=== PATIENT | female | born 1955 | race Caucasian/White ===

== ENCOUNTER 2017-05-06 09:55 | Outpatient (CLI) | payer BC ==
[~2017-05-06 09:55] MED LIST: Iopamidol 370 76% 100 ML VIAL ONE
--- NOTE | 2017-05-06 14:09 | CT ---
CT CHEST AND ABDOMEN AND PELVIS PERFORMED WITH INTRAVENOUS CONTRAST ENHANCEMENT: HISTORY: Left breast cancer with metastatic bone disease. The patient has had chemo but no radiation. COMPARISON: Exam done at [facility], dated 04/23/2016. FINDINGS: CHEST: The lungs are clear of any infiltrative process, and no pulmonary nodules are identified. Th ere is no evidence of any pleural effusions. The thyroid gland is normal in size. There is no significant mediastinal or hilar lymphadenopathy. ABDOMEN: The liver, spleen, pancreas, and gallbladder regions appear unremarkable. The right and left adrenal glands and the right and left kidneys are normal in size. A small hypoden sity involving the right kidney is probably a small cyst or possibly a small angiomyolipoma. It is s table. There is no significant periaortic or mesenteric lymphadenopathy seen. PELVIS: No evidence of adenopathy, mass, or free fluid. Review of osseous structures shows diffuse blastic bony changes, mainly involving the spine and pelvi s. There has been conversion of some of the more lytic appearing change to more blastic change, whic h is probably on the basis of treatment. Areas are much more numerous than noted on the previous exa m. There is no evidence of any pathologic fractures. IMPRESSION: 1. The left breast mass is much smaller in size as compared to the prior exam. 2. Diffuse blastic bony metastatic disease. On the previous exam, there are several predominantly ly tic lesions demonstrated. Some of these appear to have converted to a more blastic change, probably on the basis of treatment. The number of these bone lesions has significantly increased, as compared to the prior exam. POS: [facility]
--- NOTE | 2017-05-06 15:42 | NM ---
WHOLE BODY BONE SCAN: Date: 05/06/17 HISTORY: Malignant neoplasm of upper outer quadrant of left female breast, secondary malignant neoplasm of bon e. RADIOPHARMACEUTICAL: 32 mCi technetium-99m MDP injected intravenously. COMPARISON: 09/14/16. FINDINGS: Multiple foci of abnormally increased uptake in the spine, ribs, sternum, and pelvis are again seen w ith interval development of new lesions in the spine, ribs, and pelvis. Increased uptake in the shoulders, elbows, wrists, knees, and feet are consistent with degenerative c hange. Tracer excretion through the kidneys is within normal limits. IMPRESSION: Interval worsening osseous metastatic disease since 09/14/16. POS: [facility]
== END 2017-05-06 09:56 | disposition home or self-care (01) ==
LOC: NM 09:55
PROVIDERS: ATTEND Internal Medicine Hematology & Oncology
DX: C50.412 Malignant neoplasm of upper-outer quadrant of left female breast (principal); C79.51 Secondary malignant neoplasm of bone
CPT/HCPCS: 71260; 74177; 78306; 82565; A9503

== ENCOUNTER 2017-08-10 10:26 | Emergency (ER) | payer BC ==
[2017-08-10 11:18] LABS: Bilirubin Negative (Negative); Blood, Urine Negative (Negative); Clarity CLEAR (Clear); Glucose, Urine (Dipstick) Negative (Negative); Leukocyte Negative (Negative); Nitrite Negative (Negative); Protein, Urine (Dipstick) Negative (Neg-Trace); Specific Gravity, Urine 1.007 (1.002-1.036)
[2017-08-10] MEDS ORDERED: Morphine 4 MG/ML VIAL ONE (11:34)
--- NOTE | 2017-08-10 13:32 | CT ---
CT THORACIC SPINE WITH CORONAL AND SAGITTAL REFORMATIONS CT LUMBAR SPINE WITH CORONAL AND SAGITTAL REFORMATIONS: Date: 08/10/17 HISTORY: Low back pain radiating down both legs. No incontinence of bladder or bowel. No numbness or tingling of lower legs. No weakness of lower legs. Patient is on oral chemo meds for breast cancer. FINDINGS: Correlation is made with the bone scan and CT chest, abdomen, and pelvis dated 05/06/17. Numerous sclerotic lesions are seen throughout the lumbosacral spine and visualized portions of the p michelle bones and the ribs consistent with metastatic disease. There are a few mixed lesions. A lytic l esion is noted at T8 level with erosion of the posterior cortex and mild soft tissue encroachment int o the spinal canal. This finding is worse compared to the exam of 05/06/17. There is mild wedging of the superior end plates of T3 and T5 vertebral bodies. A small angiomyolipoma is noted in the right k idney. Small bilateral pleural effusions are present. IMPRESSION: Extensive osseous metastatic disease with posterior cortical destruction and mild soft tissue extensi on into the spinal canal at T8 level. If there is concern for cord compression, MRI should be perform ed. POS: [facility]
== END 2017-08-10 13:44 | disposition home or self-care (01) ==
LOC: ERS 10:26
DX: M54.5 Low back pain (principal); C50.919 Malignant neoplasm of unspecified site of unspecified female breast; Z79.899 Other long term (current) drug therapy
CPT/HCPCS: 72128; 72131; 81003; 87086; 96372; J2270

== ENCOUNTER 2017-08-16 09:13 | Outpatient (CLI) | payer BC ==
--- NOTE | 2017-08-16 12:03 | MRI ---
THORACIC SPINE MRI WITH AND WITHOUT CONTRAST: COMPARISON: 04/13/16. HISTORY: Osseous metastases, secondary malignant neoplasm of bone. TECHNIQUE: Thoracic spine MRI is performed with and without intravenous Gadolinium administration. Multisequent ial, multiplanar imaging is performed. FINDINGS: There is multilevel abnormal T1 marrow signal hypointensity throughout the thoracic spine, compatible with multifocal osseous metastasis. There is patchy STIR hyperintensity associated with the areas o f abnormal signal intensity, further supporting the diagnosis of osseous metastasis. On the postcont rast images, there is heterogeneous enhancement throughout the thoracic spine as well as multiple tho racic ribs. There is no significant loss of vertebral body height. No evidence of a pathologic frac ture with significant loss of vertebral body height. Appropriate signal intensity of the mediastinal structures. Dependent atelectatic changes are noted. There are small left greater than right pleural effusions. The thoracic cord has an overall normal size and signal intensity. No evidence of cord expansion. N o abnormal enhancement of the thoracic cord.. Conus medullaris terminates beyond th eT12 level. Ref er to the lumbar spine report for further details. There are T2 hyperintensities in the liver, incompletely evaluated. Symmetric signal intensity of th e psoas muscles. No obvious enhancement of the spinal cord. On the postcontrast images, there is multifocal osseous enhancement compatible with metastases. At t he T8 level, there is enhancement involving the left aspect of the vertebral body with extension to t he left pedicle. There is evidence of bony replacement/expansion. Abnormal enhancement does encroac h upon the anterior left aspect of the central spinal canal. There is some deformity of the thoracic cord, without T2 hyperintensity in the cord. Overall, there is mild to moderate central canal steno sis, due to bony expansion secondary to metastases. Correlation made with CT does not demonstrate an y pathologic fracture. Additionally, there is evidence of osseous metastases in the cervical spine, incompletely evaluated. IMPRESSION: 1. Extensive osseous metastases. 2. MR evidence of osseous metastases involving the left aspect of the T8 vertebral body with extensi on into the left pedicle. There is bony remodeling and expansion which causes mild to moderate centr al canal stenosis at T8. There is mild deformity of the thoracic cord at this level, without T2 hype rintensity of the cord. No pathologic enhancement is appreciated. POS: [facility]
--- NOTE | 2017-08-16 12:43 | MRI ---
MRI LUMBAR SPINE WITH AND WITHOUT CONTRAST: COMPARISON: 12/19/12. HISTORY: Secondary neoplasm of the bone. The patient has metastatic breast cancer. The patient has an abnorm ality at T8. Evaluate for additional areas of metastases/malignancy. TECHNIQUE: Lumbar spine MRI is performed without intravenous and with intravenous Gadolinium administration. Mu ltisequential, multiplanar imaging is performed. FINDINGS: Heterogeneous T1 marrow signal intensity of the lumbar vertebrae. Vertebral body height is maintaine d. There is no evidence of pathologic fracture. There is corresponding STIR hyperintensity in the r egions of osseous metastases along with associated enhancement. Metastases in the sacrum are also no tayler. There is significant signal intensity to the psoas muscles and kidneys. Conus medullaris terminates at the upper aspect of L1. There is no abnormal enhancement with regards to the cauda equina and conus medullaris. There is no abnormal enhancement within the thecal sac. Metastasis involving the right iliac bone is also noted. T12-L1: Adequate disk hydration. No significant central canal stenosis or foraminal narrowing. L1-L2: Adequate disk hydration. Generalized disk bulge without significant central canal stenosis. Foramen are patent. L2-L3: Desiccation with mild loss of disk space height. No significant posterior disk abnormality. No significant central canal stenosis. Foramen are patent. L3-L4: Adequate disk hydration. NO significant posterior disk abnormality. No significant central canal stenosis. Mild narrowing of the left subarticular zone due to disk material and posttraumatic hypertrophy. Minimal obscuration of the traversing left L4 nerve root. Right neural foramen is estevez nt. Mild left foraminal narrowing. L4-L5: Adequate disk hydration. There is a generalized disk bulge with minimal encroachment upon ranjit th subarticular zones. There is minimal mass effect without obscuration of either traversing L5 nerv e root. Posterior element hypertrophy is noted. No significant central canal stenosis. Mild bilate ral foraminal narrowing. L5-S1: Minimal desiccation without significant loss of disk space height. No significant central ca nal stenosis. Neural foramina are patent. IMPRESSION: 1. Multifocal osseous metastases. 2. No evidence of abnormal enhancement within the thecal sac. 3. Degenerative change of the lumbar spine as above. No high-grade central canal stenosis or high-g rade foraminal narrowing. POS: [facility]
[2017-08-16] MEDS ORDERED: Gadobenate Dimeglumine 529 MG/1 ML (20ML VIAL) ONE (16:36)
== END 2017-08-16 09:14 | disposition home or self-care (01) ==
LOC: MRI 09:13
PROVIDERS: ATTEND Internal Medicine Hematology & Oncology
DX: C79.51 Secondary malignant neoplasm of bone (principal); C50.412 Malignant neoplasm of upper-outer quadrant of left female breast; M47.896 Other spondylosis, lumbar region; M51.26 Other intervertebral disc displacement, lumbar region; M99.83 Other biomechanical lesions of lumbar region; M48.04 Spinal stenosis, thoracic region
CPT/HCPCS: 72157; 72158; A9579

== ENCOUNTER 2017-10-22 15:56 | Day surgery (SDC) | payer BC ==
[2017-10-22] MEDS ORDERED: diphenhydrAMINE 25 MG CAP PO SCH (16:45)
[2017-10-22] MEDS ORDERED: Acetaminophen 500 MG TAB PO SCH (16:45)
[2017-10-22] MEDS ORDERED: Prevnar 13-Val Conj/PF 0.5 ML SYRINGE IM ONE (18:00)
[2017-10-22 20:41] VITALS: BP 109/69; TEMP 98
[2017-10-22 21:13] LABS: Band 5 % (5-11); Eosinophils 3 % (0-10); Hemoglobin 9.9 g/dL (12.0-16.0); Lymphocytes 24 % (21-51); MDiff Complete? YES; Mean Corpuscular HGB CONC 32.7 g/dL (32.0-36.0); Mean Corpuscular Hemoglobin 30.6 pg (27.0-31.0); Mean Corpuscular Volume 93.6 fL (78.0-98.0); Mean Platelet Volume 6.6 fL (7.4-10.4); Monocytes 24 % (0-10); Neutrophil 44 % (42-75); Nucleated RBC 1 % (0); PLT Morphology Comment Appears Adequate; Platelet Count 156 thou/uL (130-400); RBC Distribution Width 15.5 % (11.5-14.5); Red Blood Cell (RBC) Count 3.22 mill/uL (4.20-5.40); White Blood Cell (WBC) Count 2.1 thou/uL (4.8-10.8)
== END 2017-10-22 20:49 | disposition home or self-care (01) ==
LOC: ONC/OP 15:56
PROVIDERS: ATTEND Internal Medicine Hematology & Oncology
DX: D64.9 Anemia, unspecified (principal); D69.6 Thrombocytopenia, unspecified
CPT/HCPCS: 36415; 36430; 85025; 86850; 86900; 86901; P9016

== ENCOUNTER 2018-03-05 08:40 | Outpatient (CLI) | payer BC ==
--- NOTE | 2018-03-05 10:54 | CT ---
CHEST AND ABDOMEN CT SCAN WITH IV CONTRAST: Date: 03/05/18 HISTORY: 62-year-old female with history of breast cancer with bone metastasis. COMPARISON: 05/06/17. FINDINGS: There are extensive bone metastases, which have considerably progressed when compared to the prior st udy. There is development of a moderate size pericardial effusion up to 2.0 cm in thickness posterior ly. Very small right pleural effusion. Small focus of subpleural parenchymal density in the medial as pect of the superior right lower lobe, new from the prior study, nonspecific, possibly a small focus of subsegmental atelectasis or pneumonia or pneumonitis. There are numerous liver metastases which have developed since the prior study, up to 1.5 cm in size. The gallbladder, pancreas, spleen, and adrenal glands are unremarkable. Small bilateral stable renal cysts. Extensive bone metastases noted throughout the lumbar spine, sacrum, and pelvis. There is a v ertically oriented pathologic fracture through the right superior sacral ala, which is new when elaine red to the prior study. This is not completely imaged since the pelvis is not included on this study. No evidence for significant adenopathy. No abscess or abnormal fluid collection within the abdomen. IMPRESSION: 1. Extensive worsening bone metastases. 2. Interval development of multiple liver metastases, up to 1.5 cm. 3. Developing pericardial effusion. 4. Developing very small right pleural effusion. Developing small subpleural area of parenchymal ashley nge in the right lower lobe, superior segment medially, nonspecific, possibly a small focus of pneumo nitis or subsegmental atelectasis. 5. Developing pathologic fracture, incompletely seen, involving the superior right sacral ala. POS: [facility]
--- NOTE | 2018-03-05 14:47 | NM ---
WHOLE BODY BONE SCAN: Date: 03/05/18 HISTORY: Secondary malignant neoplasm of bone. History of breast cancer. RADIOPHARMACEUTICAL: 32.9 mCi technetium-99m labeled MDP, IV. VIEWS OBTAINED: Anterior and posterior whole body. COMPARISON: 05/06/17. FINDINGS: There are scattered areas of increased uptake of radiotracer seen within the ribs bilaterally, which have increased from the prior study, with areas of eccentric increased uptake seen within thoracic ve rtebral bodies. The more intense areas of uptake of radiotracer within the thoracic spine have improv ed from the prior exam, although there are a greater number of focal areas of uptake of radiotracer s een within the ribs bilaterally. There are faint areas of increased uptake seen within the sternum bi laterally. There is also an eccentric area of increased uptake seen within the right aspect of the sa prabhu. Recent CT examination on 03/05/18 demonstrates partial visualization of a fracture with increas ed density, and findings may be related to pathological fracture in the region of a metastatic lesion . There is also mild increased activity seen in the medial aspect of each iliac bone adjacent to the sacroiliac joint, as well as involving the sacrum. There is increased uptake of activity in the shoulders bilaterally. There is a sclerotic lesion seen in the region of each glenoid on CT exam and findings may be related to a combination of mild degener ative changes, as well as metastatic lesions. IMPRESSION: 1. Multifocal metastatic lesions seen, predominantly involving the bilateral ribs, as well as the sp ine, and involving the pelvis. 2. Intense uptake of radiotracer within the right sacrum, and a fracture was seen on recent CT exam, incompletely imaged on that study, with associated area of increased density on CT suggesting metast atic lesion in this region, and findings may be related to pathological fracture involving the right sacrum. POS: [facility]
== END 2018-03-05 08:41 | disposition home or self-care (01) ==
LOC: CT 08:40
PROVIDERS: ATTEND Internal Medicine Hematology & Oncology
DX: C50.919 Malignant neoplasm of unspecified site of unspecified female breast (principal); C79.51 Secondary malignant neoplasm of bone; C78.7 Secondary malignant neoplasm of liver and intrahepatic bile duct; I31.3 Pericardial effusion (noninflammatory); J90 Pleural effusion, not elsewhere classified; M84.48XA Pathological fracture, other site, initial encounter for fracture
CPT/HCPCS: 71260; 74160; 78306; A9503

== ENCOUNTER 2018-03-20 06:12 | Day surgery (SDC) | payer BC ==
[2018-03-19 08:51] VITALS: BMI 26.7
[2018-03-20] MEDS ORDERED: CEFAZOLIN 2 GM/50 ML BAG ONE (06:39)
[2018-03-20] MEDS ORDERED: Fentanyl 100 MCG/2 ML VIAL ONE (06:55)
[2018-03-20 07:07] LABS: Hemoglobin 9.3 g/dL (12.0-16.0); Mean Corpuscular HGB CONC 31.9 g/dL (32.0-36.0); Mean Corpuscular Volume 93.8 fL (78.0-98.0); Mean Platelet Volume 4.1 fL (7.4-10.4); Platelet Count 222 thou/uL (130-400); RBC Distribution Width 14.9 % (11.5-14.5); Red Blood Cell (RBC) Count 3.12 mill/uL (4.20-5.40); White Blood Cell (WBC) Count 3.2 thou/uL (4.8-10.8)
[2018-03-20] MEDS ORDERED: Lidocaine 2% PF 5 ML VIAL ONE (07:19)
[2018-03-20] MEDS ORDERED: Bupivacaine/Epinephrine 0.25% 30 ML VIAL ONE (07:19)
[2018-03-20 07:28] LABS: Anion Gap 13 mmol/L (10-20); BUN (Urea Nitrogen) 11 mg/dL (9.8-20.1); Calc. Creatinine Clearance 105 mL/min (70-130); Calcium 9.2 mg/dL (7.8-10.44); Carbon Dioxide 24 mmol/L (23-31); Chloride 105 mmol/L (98-107); Estimated GFR-MDRD 83; Glucose 94 mg/dL (80-115); Sodium 138 mmol/L (136-145)
[2018-03-20 07:30] LABS: Band 6 % (5-11); Eosinophils 3 % (0-10); Hypochromia SLIGHT = 6-15 cells (100X) (0-5/hpf); Lymphocytes 19 % (21-51); MDiff Complete? YES; Monocytes 19 % (0-10); Neutrophil 51 % (42-75); Platelet Morphology Comment Appears Adequate; Polychromasia SLIGHT = 2-3 cells (100X) (0-2/hpf); Reactive Lymphocytes 1 % (0-10)
--- NOTE | 2018-03-20 11:21 | RAD ---
CHEST 1 VIEW: Date: 03/20/18 HISTORY: Status post MediPort placement. COMPARISON: Prior CT heel sander rubber film dated 03/05/18. FINDINGS: Right subclavian catheter and injection port in place. Heterogeneous sclerotic changes noted in the b chico structures, concerning for bone sclerotic metastasis. No pneumothorax or pleural effusion. IMPRESSION: Right central line and injection port. Evidence for bone sclerotic metastasis. No significant acute i ntrathoracic disease. No pneumothorax or pleural effusion. POS: [facility]
[2018-03-20] MEDS ORDERED: Ondansetron PF 4 MG/2 ML Vial ONE (14:49)
[2018-03-20] MEDS ORDERED: Lidocaine 1% PF 5 ML VIAL ONE (14:49)
[2018-03-20] MEDS ORDERED: ePHEDrine/0.9% NaCl/PF SYRINGE 50 mg/10 ml ONE (14:49)
[2018-03-20] MEDS ORDERED: PROPOFOL 200 MG/20 ML VIAL ONE (14:49)
[2018-03-20] MEDS ORDERED: Metoprolol Tartrate 5 MG/5 ML VIAL ONE (14:49)
--- NOTE | 2018-03-21 15:54 | PDOC.OP ---
Operative Note - Operative Note Operative Note: PROCEDURE: Right subclavian MediPort placement with fluoroscopic guidance SURGEON: Ajay Albert M.D. DATE OF PROCEDURE: 03/20/2018 PREOPERATIVE DIAGNOSIS: Metastatic breast cancer. POSTOPERATIVE DIAGNOSIS: Metastatic breast cancer. HISTORY: Patient is diagnosed with metastatic breast cancer which is progressing. Chemotherapy has been recommended and the oncologist has requested MediPort placement for this. OPERATIVE PROCEDURE IN DETAIL: After informed consent was obtained and appropriate preoperative antibiotics were administered, the patient was taken to the operating room and placed in supine position and monitored anesthesia care was administered. The patient was then placed in Trendelenburg position and the right internal jugular vein accessed easily under direct ultrasound guidance. There was excellent flow. The wire would not thread beyond the level of the clavicle. The wire was confirmed to be within the patent compressible vein, but the vein appeared to become narrow near the level of the clavicle and it was felt that the patient had a stenosis making this vein unusable. The right subclavian vein was then accessed easily by the standard approach on the first attempt with excellent flow of dark venous non-pulsatile blood. A wire threaded easily but would not advance into the superior vena cava despite multiple attempts, instead passing transversely into the proximal subclavian vein on the left. The left internal jugular was examined with ultrasound but this was very small, only half the size of the carotid artery in diameter and was felt to be inadequate for port placement. Therefore the left subclavian vein was accessed with excellent flow of dark venous nonpulsatile blood, but the wire would not thread despite multiple attempts. The right subclavian vein was again accessed and this time the wire was able to be advanced into the superior vena cava as confirmed by fluoroscopy. Additional local anesthesia was infused to the skin and subcutaneous tissues lateral and inferior to the access site. The skin incision was extended from the wire laterally and a subcutaneous pocket developed inferiorly. A Mediport was obtained and confirmed to fit in the subcutaneous pocket. This was secured inferiorly to the pectoralis fascia with a Prolene suture, which was clamped, but not tied. The dilator and sheath were then placed over the wire and the dilator and wire removed leaving the sheath in place. The clamped MediPort tubing was tunneled through the sheath, which was then split and removed leaving the MediPort tubing in place. The tubing was adjusted until the tip was confirmed by fluoroscopy to be in the superior vena cava just above the atrium. The tubing was clamped at the skin level and cut and the tubing secured to the port, which was then placed in the subcutaneous pocket. The previously placed suture was secured and two additional sutures were placed to fix the port in place within the pocket. The port was aspirated with the Cardona needle and had excellent flow of dark venous non-pulsatile blood and easily flushed without resistance. The subcutaneous tissues were closed with a running Monocryl suture , following which the skin was closed with a running subcuticular Monocryl suture. Dermabond dressings were placed and the hub was again accessed through the skin and confirmed to easily aspirate and easily flush. The course of the catheter was confirmed by fluoroscopy to be smooth with the tip appropriately located in the superior vena cava. The patient was taken back to the day stay unit in good condition. Estimated blood loss was minimal. There were no complications. There were no specimens.
== END 2018-03-20 10:55 | disposition home or self-care (01) ==
LOC: SDC 06:12
PROVIDERS: ATTEND Surgery
PROC: 0JH63WZ Insertion of Totally Implantable Vascular Access Device into Chest Subcutaneous Tissue and Fascia, Percutaneous Approach (ICD-10-PCS; principal; 2018-03-20)
DX: C50.912 Malignant neoplasm of unspecified site of left female breast (principal); C79.51 Secondary malignant neoplasm of bone; C78.7 Secondary malignant neoplasm of liver and intrahepatic bile duct; Z88.1 Allergy status to other antibiotic agents; Z88.8 Allergy status to other drugs, medicaments and biological substances
CPT/HCPCS: 36415; 71045; 80048; 85025; C1788; J1642; J2001; J2405; J2704; J3010

== ENCOUNTER 2018-05-08 07:27 | Day surgery (SDC) | payer BC ==
[2018-05-08] MEDS ORDERED: diphenhydrAMINE 25 MG CAP PO SCH (08:45)
[2018-05-08] MEDS ORDERED: Acetaminophen 500 MG TAB PO SCH (08:45)
[2018-05-08] MEDS ORDERED: Sodium Chloride 0.9% 30 ML ONE (09:59)
[2018-05-08 12:03] LABS: Hemoglobin 9.1 g/dL (12.0-16.0)
[2018-05-08 12:11] VITALS: BP 105/56; TEMP 97.6
== END 2018-05-08 12:11 | disposition home or self-care (01) ==
LOC: ONC/OP 07:27
PROVIDERS: ATTEND Internal Medicine Hematology & Oncology
PROC: 30233N1 Transfusion of Nonautologous Red Blood Cells into Peripheral Vein, Percutaneous Approach (ICD-10-PCS; principal; 2018-05-08)
DX: D64.9 Anemia, unspecified (principal); D69.6 Thrombocytopenia, unspecified; Z88.1 Allergy status to other antibiotic agents
CPT/HCPCS: 36430; 85014; 85018; 86850; 86900; 86901; J1642; P9016; Q0163

== ENCOUNTER 2018-06-05 08:13 | Day surgery (SDC) | payer BC ==
[~2018-06-05 08:13] MED LIST changes: +Acetaminophen 500 MG TAB PO SCH; -Iopamidol 370 76% 100 ML VIAL ONE; +diphenhydrAMINE 25 MG CAP PO SCH
[2018-06-05] MEDS ORDERED: Sodium Chloride 0.9% 40 ML ONE (08:42)
[2018-06-05 11:40] LABS: Hemoglobin 8.7 g/dL (12.0-16.0)
[2018-06-05 14:38] VITALS: BP 104/57; TEMP 98.6
== END 2018-06-05 14:42 | disposition home or self-care (01) ==
LOC: ONC/OP 08:13
PROVIDERS: ATTEND Internal Medicine Hematology & Oncology
PROC: 30233N1 Transfusion of Nonautologous Red Blood Cells into Peripheral Vein, Percutaneous Approach (ICD-10-PCS; principal; 2018-06-05)
DX: D64.9 Anemia, unspecified (principal); D69.6 Thrombocytopenia, unspecified; Z88.1 Allergy status to other antibiotic agents
CPT/HCPCS: 36430; 85014; 85018; 86850; 86900; 86901; J1642; P9016; Q0163

== ENCOUNTER 2018-06-16 09:18 | Outpatient (CLI) | payer BC ==
--- NOTE | 2018-06-16 11:23 | CT ---
CT OF THE CHEST AND ABDOMEN AND PELVIS: DATE: 06/16/2018. COMPARISON: 03/05/2018 CT examination of chest and abdomen. HISTORY: Breast cancer with osseous metastatic disease. TECHNIQUE: Axial CT imaging is obtained at 5 mm intervals from the thoracic inlet through the pubic symphysis wi th IV and oral contrast. Coronal reformatted imaging obtained. FINDINGS: CT CHEST: There is no axillary lymphadenopathy noted on either side. There is trace fluid in the superior pericardial recess. A small pericardial effusion is noted posteriorly measuring up to 1.6 cm in transverse dimension, sli ghtly less conspicuous than on the 03/05/2018 exam. No mediastinal or hilar lymphadenopathy is noted . The vascular structures of the chest appear patent. There is no pneumothorax seen on either side. There is mild increased linear interstitial density within the medial aspect of the right lower lobe on axial image 35, stable. No discrete/dominant pulmonary parenchymal mass lesion or nodule is noted on either side. Review of the osseous structures of the chest demonstrates sclerotic lesions within the manubrium and the sternum, which do not appear significantly changed, evidence of metastatic disease. Stable osse ous metastatic lesion within the inferior aspect of the right scapula. Numerous osseous lesions are noted within the ribs bilaterally, and there are innumerable sclerotic lesions seen scattered through out the thoracic vertebral bodies, not significantly changed, evidence of widespread osseous metastat ic disease. CT OF ABDOMEN AND PELVIS: No free intraperitoneal air or fluid is evident. There are numerous low-density lesions scattered throughout the right and the left lobe of the liver. The largest lesion within the left lobe of the liver measures approximately 1.3 cm in short axis di mension, similar when compared to the 03/05/2018 exam. These findings are consistent with stable met astatic disease within the left lobe of the liver. Similarly, there are numerous lesions scattered t hroughout the right lobe of the liver, not significantly changed in size or number when compared to t he most recent prior examination. The gallbladder, spleen, pancreas, adrenal glands, and kidneys demonstrate no acute findings. There is trace fluid within the pelvic cul-de-sac on the right. Evaluation of the large and small bowel demonstrates no evidence for bowel inflammatory change or obs truction. The vascular structures of the abdomen/pelvis appear patent. No retroperitoneal, pelvic, or mesenter ic lymphadenopathy. Osseous structures of the abdomen/pelvis demonstrate numerous sclerotic lesions within the ischium bi laterally as well as the region of the pubic symphysis, bilateral inferior pubic rami, and superior p ubic ramus on the right. There is a fracture involving the sacral ala on the right, as seen on the examination. This fracture is comminuted and involves the superior margin of the right sa cral ala through the inferior anterior aspect of the right sacral ala. There is extensive multilevel osseous metastatic disease involving the lumbar spine, with sclerotic lesion seen within all lumbar vertebral bodies, not significantly changed when compared to the most recent prior examination. IMPRESSION: Findings suggesting stable widespread osseous metastatic disease and stable diffuse hepatic metastati c disease involving right and left lobes of the liver. Small pericardial effusion noted, decreased s lightly when compared to prior imaging. Fracture of the right sacral alae. POS: [facility]
[2018-06-16] MEDS ORDERED: ISOVUE-370 76%-LOCM 1 ML ONE (14:44)
== END 2018-06-16 09:19 | disposition home or self-care (01) ==
LOC: BICCT 09:18
PROVIDERS: ATTEND Internal Medicine Hematology & Oncology
DX: C50.412 Malignant neoplasm of upper-outer quadrant of left female breast (principal); C79.51 Secondary malignant neoplasm of bone; I31.3 Pericardial effusion (noninflammatory); M84.58XA Pathological fracture in neoplastic disease, other specified site, initial encounter for fracture
CPT/HCPCS: 71260; 74177; 82565

== ENCOUNTER 2018-06-30 12:47 | Day surgery (SDC) | payer BC ==
[2018-06-30] MEDS ORDERED: diphenhydrAMINE 25 MG CAP PO SCH (13:30)
[2018-06-30] MEDS ORDERED: Acetaminophen 500 MG TAB PO SCH (13:30)
[2018-06-30 22:04] VITALS: BP 89/60; TEMP 97.5
[2018-06-30 22:07] LABS: Mean Corpuscular HGB CONC 32.5 g/dL (32.0-36.0); Mean Corpuscular Hemoglobin 31.2 pg (27.0-31.0); Mean Corpuscular Volume 95.9 fL (78.0-98.0); Mean Platelet Volume 12.4 fL (7.4-10.4); Platelet Count 13 thou/uL (130-400); Red Blood Cell (RBC) Count 2.89 mill/uL (4.20-5.40); White Blood Cell (WBC) Count 3.1 thou/uL (4.8-10.8)
[2018-06-30 22:28] LABS: Reflex for Review?? YES
[2018-06-30 22:29] LABS: Band 12 % (5-11); Hypochromia SLIGHT = 6-15 cells (100X) (0-5/hpf); Lymphocytes 12 % (21-51); MDiff Complete? YES; Monocytes 36 % (0-10); Neutrophil 40 % (42-75); Platelet Morphology Comment Appears Decreased
== END 2018-06-30 22:15 | disposition home or self-care (01) ==
LOC: ONC/OP 12:47 → SURG A 12:49 → ONC/OP 22:15
PROVIDERS: ATTEND Internal Medicine Hematology & Oncology
PROC: 30233N1 Transfusion of Nonautologous Red Blood Cells into Peripheral Vein, Percutaneous Approach (ICD-10-PCS; principal; 2018-06-30)
DX: D64.9 Anemia, unspecified (principal); D69.6 Thrombocytopenia, unspecified
CPT/HCPCS: 36430; 80053; 82248; 83615; 84100; 84550; 85025; 85060; 86850; 86900; 86901; P9016; Q0163

== ENCOUNTER 2018-07-16 14:19 | Outpatient (CLI) | payer BC | END 2018-07-16 14:20 | disposition home or self-care (01) | LOC: ULT 14:19 | PROVIDERS: ATTEND Internal Medicine Hematology & Oncology | DX: C50.412 Malignant neoplasm of upper-outer quadrant of left female breast (principal); I08.2 Rheumatic disorders of both aortic and tricuspid valves; I31.3 Pericardial effusion (noninflammatory); Z79.899 Other long term (current) drug therapy | CPT/HCPCS: 93306 ==

== ENCOUNTER 2018-07-25 08:25 | Day surgery (SDC) | payer BC ==
[2018-07-25] MEDS ORDERED: Sodium Chloride 0.9% 20 ML ONE (09:51)
[2018-07-25] MEDS ORDERED: Acetaminophen 500 MG TAB PO SCH (10:30)
[2018-07-25] MEDS ORDERED: diphenhydrAMINE 25 MG CAP PO SCH (10:30)
[2018-07-25 15:18] VITALS: BP 93/52; TEMP 97.9
== END 2018-07-25 15:18 | disposition home or self-care (01) ==
LOC: ONC/OP 08:25
PROVIDERS: ATTEND Internal Medicine Hematology & Oncology
PROC: 30233N1 Transfusion of Nonautologous Red Blood Cells into Peripheral Vein, Percutaneous Approach (ICD-10-PCS; principal; 2018-07-25)
DX: D64.9 Anemia, unspecified (principal); D69.6 Thrombocytopenia, unspecified
CPT/HCPCS: 36430; 85014; 85018; 86850; 86900; 86901; J1642; P9016; Q0163

== ENCOUNTER 2018-07-28 09:19 | Outpatient (CLI) | payer BC ==
--- NOTE | 2018-07-28 10:38 | CT ---
EXAM: CT chest, abdomen, and pelvis with IV contrast: HISTORY: Breast cancer with metastatic liver and osseous lesions. Patient currently on chemotherapy. COMPARISON: 06/16/2018 FINDINGS: CT THORAX: Lungs: Scattered linear densities are seen in the lungs bilaterally which may be related to atelectas is or minimal scarring. No discrete pulmonary nodule or mass is seen. Interstitial densities medial right lower lobe are less conspicuous on today's exam. Pleura: A tiny right pleural effusion is present. Lymph nodes: No lymphadenopathy. Mediastinum: A stable small pericardial effusion is seen. No mediastinal or hilar lymphadenopathy is seen. Chest wall: No abnormalities Vessels: A right subclavian Mediport catheter is again noted in place. The thoracic aorta is normal i n caliber. CT ABDOMEN AND PELVIS: Liver: Multiple scattered hypodense lesions are seen throughout each lobe of the liver which are over all stable in size as well as number. However, there is a hypodense lesion in the lateral aspect lateral segment left hepatic lobe measuring 1.9 cm which previously measured 1.3 cm. Gallbladder: Decompressed but otherwise grossly normal in appearance.\ Pancreas: Within normal limits. Spleen: Within normal limits. Adrenal glands: Within normal limits. Kidneys: Within normal limits. Urinary Bladder: The urinary bladder is unremarkable. Reproductive organs: Within normal limits for patient's age. Bowel: Normal in caliber. Adenopathy:No lymphadenopathy within the abdomen or pelvis. Peritoneum: A small amount of free fluid is seen in the pelvis slightly increased when compared to pr ior exam. Abdominal wall: No abnormalities seen. Osseous structures: Diffuse sclerotic osseous metastatic lesions are seen throughout the spine, benitez um, and in the pelvis as well as involving the sacrum and scattered within ribs. Probable small sclerotic lesions in the distal body of each scapula. Pathological fracture involving the right sacra l ala is again seen. IMPRESSION: 1. Persistent widespread osseous metastatic disease with overall stable hepatic metastatic disease; a lthough, there has been mild interval enlargement of a hypodense lesion lateral segment left hepatic lobe. 2. Persistent fracture right sacral ala. 3. Stable small pericardial effusion with tiny right pleural effusion. 4. No discrete pulmonary nodule is visualized.
[2018-07-28] MEDS ORDERED: ISOVUE-370 76%-LOCM 1 ML ONE (10:56)
== END 2018-07-28 09:20 | disposition home or self-care (01) ==
LOC: RAD 09:19
PROVIDERS: ATTEND Internal Medicine Hematology & Oncology
DX: C79.51 Secondary malignant neoplasm of bone (principal); C78.7 Secondary malignant neoplasm of liver and intrahepatic bile duct; C50.919 Malignant neoplasm of unspecified site of unspecified female breast; K76.89 Other specified diseases of liver; J90 Pleural effusion, not elsewhere classified; I31.3 Pericardial effusion (noninflammatory); S32.10XA Unspecified fracture of sacrum, initial encounter for closed fracture
CPT/HCPCS: 71260; 74177; Q9966

== ENCOUNTER 2018-09-01 13:32 | Day surgery (SDC) | payer BC ==
[2018-09-01] MEDS ORDERED: Sodium Chloride 0.9% 20 ML ONE (13:49)
[2018-09-01] MEDS ORDERED: Acetaminophen 500 MG TAB PO SCH (15:00)
[2018-09-01] MEDS ORDERED: diphenhydrAMINE 25 MG CAP PO SCH (15:00)
[2018-09-01 21:55] VITALS: BP 104/58; TEMP 98.8
[2018-09-01 22:18] LABS: Hemoglobin 10.8 g/dL (12.0-16.0); Mean Corpuscular HGB CONC 33.1 g/dL (32.0-36.0); Mean Corpuscular Hemoglobin 31.9 pg (27.0-31.0); Mean Corpuscular Volume 96.3 fL (78.0-98.0); RBC Distribution Width 16.3 % (11.5-14.5); Red Blood Cell (RBC) Count 3.38 mill/uL (4.20-5.40); White Blood Cell (WBC) Count 0.9 thou/uL (4.8-10.8)
[2018-09-01 22:38] LABS: Band 6 % (5-11); Eosinophils 10 % (0-10); Lymphocytes 11 % (21-51); MDiff Complete? YES; Mean Platelet Volume 8.9 fL (7.4-10.4); Monocytes 51 % (0-10); Myelocyte 1 % (0-0); Neutrophil 21 % (42-75); Nucleated RBC 3 % (0); Platelet Count 52 thou/uL (130-400); Platelet Morphology Comment Appears Decreased; Tear Drops SLIGHT = 2-5 cells (100X) (0-1/hpf)
== END 2018-09-01 22:05 | disposition home or self-care (01) ==
LOC: SDC/OP 13:32 → ONC 14:52 → SDC/OP 22:05
PROVIDERS: ATTEND Internal Medicine Hematology & Oncology
PROC: 30233N1 Transfusion of Nonautologous Red Blood Cells into Peripheral Vein, Percutaneous Approach (ICD-10-PCS; principal; 2018-09-01)
DX: D64.9 Anemia, unspecified (principal); D69.6 Thrombocytopenia, unspecified; Z88.1 Allergy status to other antibiotic agents; Z88.8 Allergy status to other drugs, medicaments and biological substances
CPT/HCPCS: 36430; 85025; 86850; 86900; 86901; P9016; Q0163

== ENCOUNTER 2018-09-07 20:23 | Observation (INO) | payer BC ==
[~2018-09-07 20:23] MED LIST changes: -Acetaminophen 500 MG TAB PO SCH; +Iopamidol 370 76% 100 ML VIAL ONE; -diphenhydrAMINE 25 MG CAP PO SCH
[2018-09-07] MEDS ORDERED: Ondansetron PF 4 MG/2 ML Vial ONE (21:08)
[2018-09-07 21:34] LABS: Hemoglobin 10.9 g/dL (12.0-16.0); Mean Corpuscular HGB CONC 32.6 g/dL (32.0-36.0); Mean Corpuscular Hemoglobin 32.5 pg (27.0-31.0); Mean Corpuscular Volume 99.8 fL (78.0-98.0); Platelet Count 57 thou/uL (130-400); Red Blood Cell (RBC) Count 3.34 mill/uL (4.20-5.40); White Blood Cell (WBC) Count 2.7 thou/uL (4.8-10.8)
[2018-09-07 21:44] LABS: Bilirubin Negative (Negative); Blood, Urine Negative (Negative); Clarity CLEAR (Clear); Glucose, Urine (Dipstick) Negative (Negative); Leukocyte Trace (Negative); Nitrite Negative (Negative); Protein, Urine (Dipstick) Negative (Neg-Trace)
[2018-09-07 21:46] LABS: Bacteria/HPF None Seen HPF (None Seen); Hyaline Casts/LPF 0-3 HYALINE CAST LPF (0-3 Hyaline); Pathc Cast-AUWi Flag 0.13 (0-2.49); RBC/HPF 0-3 HPF (0-3); Squamous Epithelial None Seen HPF (0-3); WBC/HPF 0-3 HPF (0-3)
[2018-09-07 21:49] LABS: ALT (SGPT) 41 U/L (8-55); AST (SGOT) 74 U/L (5-34); Albumin 3.4 g/dL (3.4-4.8); Alkaline Phosphatase 277 U/L (40-150); Anion Gap 15 mmol/L (10-20); BUN (Urea Nitrogen) 6 mg/dL (9.8-20.1); Bilirubin, Total 0.8 mg/dL (0.2-1.2); Calc. Creatinine Clearance 0 mL/min (70-130); Calcium 9.3 mg/dL (7.8-10.44); Carbon Dioxide 21 mmol/L (23-31); Chloride 102 mmol/L (98-107); Estimated GFR-MDRD 87; Globulin 2.6 g/dL (2.4-3.5); Glucose 90 mg/dL (80-115); Potassium 3.9 mmol/L (3.5-5.1); Sodium 134 mmol/L (136-145)
[2018-09-07 22:02] LABS: Band 8 % (5-11); Hypochromia SLIGHT = 6-15 cells (100X) (0-5/hpf); Lymphocytes 4 % (21-51); MDiff Complete? YES; Monocytes 8 % (0-10); Neutrophil 80 % (42-75); Platelet Morphology Comment Appears Decreased
--- NOTE | 2018-09-07 22:19 | CT ---
EXAM: Abdomen and pelvic CT scan with contrast: HISTORY: Weakness history of breast cancer with bone metastases chills and low-grade fever COMPARISON: 07/28/2018 FINDINGS: Small right pleural effusion or pleural thickening. Small to moderate pericardial effusion but slight ly improved. Liver: Multiple liver metastasis. Gallbladder:Small contracted gallbladder. Pancreas:Unremarkable Spleen:Unremarkable. Adrenal glands:Unremarkable. Kidneys:No renal calculus or acute obstruction.No solid or cystic mass. No evidence for bowel obstruction. Extensive bone metastasis. No CT evidence for acute appendicitis. The urinary bladder is unremarkable. Minimal free fluid in the pelvis IMPRESSION: No significant new process in the abdomen or pelvis. Overall stable appearing liver metastasis and ranjit ne metastasis, small right pleural effusion or pleural thickening and pericardial effusion.
[2018-09-07] MEDS ORDERED: metroNIDAZOLE 250 MG TAB ONE (23:28)
[2018-09-08 00:48] VITALS: BMI 24.1
[2018-09-08] MEDS ORDERED: Loperamide HCl 2 MG CAP PO PRN (07:38)
[2018-09-08] MEDS ORDERED: Acetaminophen 325 MG TAB PO PRN (07:38)
[2018-09-08] MEDS ORDERED: Ondansetron ODT 8 MG TAB SL PRN (07:40)
[2018-09-08] MEDS: traMADol HCl 50 MG TAB PO SCH ×3 (08:31→21:33)
[2018-09-08] MEDS: Sodium Chloride 0.9% 1,000 ML IV SCH ×2 (11:43→20:00)
--- NOTE | 2018-09-08 12:33 | HP ---
HISTORY OF PRESENT ILLNESS: The patient is a 63-year-old female with a known history of metastatic breast cancer. She was originally seen in my office by the physician employment legal assistant, who was diagnosed to have cellulitis on elbow. She was placed on Keflex. She told yesterday she has been having diarrhea, not associated with vomiting. No fever was noted. No blood per bowel movement otherwise noted. The patient states that she became progressively weaker, feeling worse. She is not sure she ran fever. She reported to the emergency room. She was seen and evaluated there. She was found to be clinically dehydrated somewhat as well as neutropenic. She subsequently was admitted to the hospital. She underwent CT scan of the abdomen in the emergency room, which showed no intraabdominal pathology with liver and bone mets as previously noted. At this time, she states she is feeling a little bit better. Once again, no vomiting. No blood per bowel movement was noted. She had been on some antibiotic treatment for cellulitis of an elbow infection. Otherwise, no other medical complaints. Of note, she states she is feeling a little bit better. ALLERGIES: SHE IS ALLERGIC TO LEVOFLOXACIN AND BACTRIM. CURRENT MEDICATIONS: 1. Tramadol. 2. Ondansetron. 3. She is currently undergoing chemotherapy. PAST MEDICAL HISTORY: Medical history is positive for the above noted breast cancer. PAST SURGICAL HISTORY: Surgical history is positive for jaw surgery and oophorectomy. SOCIAL/PERSONAL HISTORY: She is . She does not smoke nor does she drink alcohol. REVIEW OF SYSTEMS: GI: Positive as above. : Negative. CARDIOVASCULAR: Negative. NEUROLOGIC: Otherwise, negative. PHYSICAL EXAMINATION: VITAL SIGNS: Temperature is 99.9, respirations 16, pulse 106, and BP 112/73. LUNGS: Clear. HEENT: Normocephalic and atraumatic. Sclerae and conjunctivae clear. Throat clear. NECK: Supple. Full range of motion. No masses. LUNGS: Reveal bilateral breath sounds. ABDOMEN: Diffusely tender without evidence of rebound or guarding. There is no evidence of any palpable masses or lesions otherwise noted. EXTREMITIES: No clubbing, edema, or cyanosis. LABORATORY DATA: White blood count is 16.7, hemoglobin 10.9, and hematocrit 33.3. Sodium 134, potassium 3.9, chloride 102, CO2 of 21, BUN 6, and creatinine 0.68. Urinalysis clear. IMPRESSION: A 63-year-old female with diarrhea. Doubt this represents Clostridium difficile colitis. She has received one dose of IV Flagyl due to the fact that she has had no blood per bowel movement. Thought this is probably a more of viral infection, but it is noted she is neutropenic at this time. PLAN: We will continue IV fluids. Start on clear liquid diet. Await studies for C. difficile antigen. Job ID: [id number]
[2018-09-09] MEDS: Sodium Chloride 0.9% 1,000 ML IV SCH (01:10)
[2018-09-09 04:37] VITALS: TEMP 98.4
[2018-09-09 05:06] LABS: Anion Gap 10 mmol/L (10-20); BUN (Urea Nitrogen) 4 mg/dL (9.8-20.1); Calc. Creatinine Clearance 107 mL/min (70-130); Calcium 8.7 mg/dL (7.8-10.44); Carbon Dioxide 25 mmol/L (23-31); Chloride 105 mmol/L (98-107); Estimated GFR-MDRD Greater than 90; Glucose 84 mg/dL (80-115); Potassium 3.8 mmol/L (3.5-5.1); Sodium 136 mmol/L (136-145)
[2018-09-09 05:11] LABS: Band 23 % (5-11); Lymphocytes 10 % (21-51); MDiff Complete? YES; Mean Corpuscular HGB CONC 32.4 g/dL (32.0-36.0); Mean Corpuscular Hemoglobin 31.9 pg (27.0-31.0); Mean Corpuscular Volume 98.6 fL (78.0-98.0); Mean Platelet Volume 10.2 fL (7.4-10.4); Metamyelocyte 1 % (0-0); Monocytes 9 % (0-10); Neutrophil 57 % (42-75); Nucleated RBC 1 % (0); Platelet Count 47 thou/uL (130-400); Platelet Morphology Comment Appears Decreased; RBC Distribution Width 15.7 % (11.5-14.5); Red Blood Cell (RBC) Count 3.14 mill/uL (4.20-5.40); White Blood Cell (WBC) Count 2.2 thou/uL (4.8-10.8)
[2018-09-09] MEDS: traMADol HCl 50 MG TAB PO SCH (08:47)
[2018-09-09 09:32] VITALS: BP 173/86
--- NOTE | 2018-09-09 11:39 | PRG ---
DATE OF SERVICE: 09/09/2018 SUBJECTIVE: Ms. Toscano has had no further diarrhea. She is feeling much better. No further body aches or chills. OBJECTIVE: VITAL SIGNS: She has been afebrile. Blood pressure 106/63, O2 saturations 95%, pulse 93, and respirations 16. GENERAL: She is alert and active, in no distress. LUNGS: Clear. HEART: Reveals no murmurs. ABDOMEN: Soft, nontender. Bowel sounds are present and active. No hepatosplenomegaly noted. No tenderness noted. LABORATORY DATA: White blood count 2.2, hemoglobin 10.0, hematocrit 31.0, 57 neutrophils, 23 bands, . Sodium 136, potassium 3.8, chloride 105, CO2 of 25, BUN 4, creatinine 0.62. Blood cultures are negative. Urine culture is negative. IMPRESSION: Probable viral gastroenteritis with episode of diarrhea. PLAN: can be discharged to home. She further needs oral antibiotics for cellulitis of her elbow. HOSPITAL SUMMARY: She was admitted for diarrhea due to concerns of neutropenia and possible C difficile. C difficile test could not be done, but there was no further diarrhea. The patient tolerated all oral intake, having no further diarrhea. She was discharged to home with home medicines. We will follow up with her oncologist on her regular routine visits. Job ID: [id number]
--- NOTE | 2018-09-13 22:52 | EKG ---
Test Reason : Blood Pressure : / mmHG Vent. Rate : 092 BPM Atrial Rate : 092 BPM P-R Int : 126 ms QRS Dur : 076 ms QT Int : 392 ms P-R-T Axes : 035 004 029 degrees QTc Int : 484 ms Normal sinus rhythm Normal ECG Confirmed by MATT VAZQUEZ ([id number]), assistant film editor MATTEO CHAUDHRY ([id number]) on 09/13/2018 10:51:37 PM Referred By: Confirmed By:MATT VAZQUEZ
== END 2018-09-09 09:26 | disposition home or self-care (01) ==
LOC: ERS 20:23 → ONC 09-08 00:21
PROVIDERS: ADMIT Family Medicine; ATTEND Family Medicine
DX: R19.7 Diarrhea, unspecified (principal); J90 Pleural effusion, not elsewhere classified; Z88.1 Allergy status to other antibiotic agents
CPT/HCPCS: 36415; 74177; 80048; 80053; 81003; 81015; 83605; 85025; 86850; 86900; 86901; 87040; 87086; 87804; 93005; 94760; 96361; 96374; G0378; J2405; Q9967

== ENCOUNTER 2018-09-17 19:50 | Inpatient (IN) | payer BC ==
--- NOTE | 2018-09-17 20:36 | RAD ---
PORTABLE CHEST ONE VIEW: 09/17/18 at 8:31 p.m. HISTORY: Fever, chills, bodyaches, nausea. FINDINGS: Comparison made with exam of 03/20/18. Right sided Port-A-Cath remains in place. The heart size is normal. The lungs are well expanded witho ut lobar consolidation, pneumothoraces, or pleural effusions. IMPRESSION: No radiographic evidence of acute cardiopulmonary process. POS: [facility]
[2018-09-17 20:52] LABS: Bacteria/HPF None Seen HPF (None Seen); Bilirubin Negative (Negative); Blood, Urine Negative (Negative); Clarity Clear (Clear); Glucose, Urine (Dipstick) Normal (Negative); Leukocyte 75 Leu/uL (Negative); Nitrite Negative (Negative); Protein, Urine (Dipstick) 20 mg/dL (Neg-Trace); RBC/HPF 0-3 HPF (0-3); Squamous Epithelial 0-3 HPF (0-3)
[2018-09-17 20:55] LABS: Hemoglobin 10.6 g/dL (12.0-16.0); Mean Corpuscular HGB CONC 31.7 g/dL (32.0-36.0); Mean Corpuscular Hemoglobin 31.5 pg (27.0-31.0); Mean Corpuscular Volume 99.3 fL (78.0-98.0); Mean Platelet Volume 9.5 fL (7.4-10.4); Platelet Count 64 thou/uL (130-400); RBC Distribution Width 16.3 % (11.5-14.5); Red Blood Cell (RBC) Count 3.35 mill/uL (4.20-5.40); White Blood Cell (WBC) Count 1.4 thou/uL (4.8-10.8)
[2018-09-17 21:05] LABS: ALT (SGPT) 60 U/L (8-55); AST (SGOT) 136 U/L (5-34); Albumin 3.6 g/dL (3.4-4.8); Alkaline Phosphatase 394 U/L (40-150); Anion Gap 15 mmol/L (10-20); BUN (Urea Nitrogen) 11 mg/dL (9.8-20.1); Bilirubin, Total 1.6 mg/dL (0.2-1.2); Calc. Creatinine Clearance 0 mL/min (70-130); Calcium 9.7 mg/dL (7.8-10.44); Carbon Dioxide 24 mmol/L (23-31); Chloride 99 mmol/L (98-107); Estimated GFR-MDRD 84; Glucose 92 mg/dL (80-115); Potassium 3.9 mmol/L (3.5-5.1); Protein, Total 6.6 g/dL (6.0-8.3); Sodium 134 mmol/L (136-145)
[2018-09-17 21:18] LABS: Band 13 % (5-11); Eosinophils 2 % (0-10); Hypochromia SLIGHT = 6-15 cells (100X) (0-5/hpf); Lymphocytes 6 % (21-51); MDiff Complete? YES; Macrocytosis SLIGHT = 6-15 cells (100X) (0-5/hpf); Monocytes 49 % (0-10); Neutrophil 23 % (42-75); Ovalocytes SLIGHT = 2-5 cells (100X) (0-1/hpf); Platelet Morphology Comment Appears Decreased; Polychromasia SLIGHT = 2-3 cells (100X) (0-2/hpf); Reactive Lymphocytes 7 % (0-10); Tear Drops SLIGHT = 2-5 cells (100X) (0-1/hpf)
[2018-09-17] MEDS ORDERED: CEFAZOLIN 1 GM VIAL ONE (21:42)
[2018-09-17] MEDS ORDERED: Acetaminophen 500 MG TAB ONE (21:42)
[2018-09-17] MEDS ORDERED: Acetaminophen 325 MG TAB PO PRN (22:53)
[2018-09-18] MEDS: Cefepime 1 GM in Sodium Chloride 0.9% 100 ML IVPB SCH ×2 (00:26→08:49)
[2018-09-18 00:46] VITALS: BMI 23.6
[2018-09-18 01:05] LABS: Lactic Acid 1.6 mmol/L (0.5-2.2)
[2018-09-18] MEDS ORDERED: Ondansetron PF 4 MG/2 ML Vial IVP PRN (07:44)
[2018-09-18] MEDS ORDERED: Loperamide HCl 2 MG CAP PO PRN (07:44)
[2018-09-18] MEDS: Sodium Chloride 0.9% 1,000 ML IV SCH ×3 (09:52→21:06)
[2018-09-18] MEDS ORDERED: Cefepime 2 GM in Sodium Chloride 0.9% 100 ML IVPB SCH (10:00)
--- NOTE | 2018-09-18 10:31 | HP ---
HISTORY OF PRESENT ILLNESS: This is a 63-year-old white female with known history of breast cancer. She was recently hospitalized here for diarrhea and dehydration. She was discharged after 24 hours of observation. She presented to the emergency room yesterday complaining of fever. There was no sore throat. There was some nausea, but no vomiting. She was seen and evaluated in the ER. She was found to have some fever. It is noted she is currently on chemotherapy and neutropenic. No productive coughing was noted. After evaluation in the emergency room, it was determined that her most likely source of her fever was possibly urinary tract infection. Chest x-ray was noted to be normal. Otherwise, there were no medical complaints other than she was recently hospitalized here in the hospital for diarrhea. She was seen back in followup with black stool. This was secondary to Pepto-Bismol. She has been back at work . It is noted that her white blood count is 1.4. Otherwise, no other medical complaints are noted. ALLERGIES: SHE IS ALLERGIC TO: 1. LEVOFLOXACIN. 2. BACTRIM. CURRENT MEDICATIONS: 1. Tramadol. 2. Ondansetron. 3. As well as chemotherapy. MEDICAL HISTORY: Positive for breast cancer. SURGICAL HISTORY: Positive for jaw surgery, oophorectomy as well as breast surgery. SOCIAL AND PERSONAL HISTORY: She is . She does not smoke nor she drink alcohol. REVIEW OF SYSTEMS: GI: Negative. : Negative. CARDIOVASCULAR: Negative. RESPIRATORY: Otherwise, negative. NEUROLOGIC: Negative. PHYSICAL EXAMINATION: VITAL SIGNS: Her temperature is 99.5, pulse 104, respirations 18, O2 saturations 96%, blood pressure 160/76. GENERAL: She is alert and active, in no distress. HEENT: Normocephalic and atraumatic. Sclerae and conjunctivae are clear. NECK: Supple. Full range of motion. No masses. LUNGS: Clear bilaterally. HEART: Reveals a regular rate and rhythm with murmur, gallops, or rubs. ABDOMEN: Soft and nontender. Bowel sounds are active. There is no hepatosplenomegaly noted. There is no evidence of rebound or guarding noted. EXTREMITIES: No clubbing, edema, or cyanosis noted at this time. LABORATORY DATA: Her white blood count is 1.4, hemoglobin 10.6, hematocrit 33.3, 23 segs, 13 bands, 6 lymphocytes, 49 monocytes. Sodium 134, potassium 3.9, chloride 99, CO2 of 24, BUN 11, creatinine 0.7. Urinalysis; 7 to 10 wbc's per high-power field, actually no bacteria seen. IMPRESSION: This is a 63-year-old female, neutropenic secondary to chemotherapy for breast cancer, presents with fever. Possible source of the fever is urinary infection. PLAN: The patient will be admitted to the hospital, continued on IV fluids. We will start on cefepime and continue on cefepime IV piggyback at this time. We will get Dr. Mejia to consult to see if there are any recommendations he has. Job ID: [id number]
[2018-09-18] MEDS: Vancomycin HCl 1 GM in Premix Bag 1 BAG IVPB SCH ×2 (11:22→21:00)
--- NOTE | 2018-09-18 13:15 | CON ---
DATE OF CONSULTATION: REASON FOR CONSULT: Breast cancer. HISTORY OF PRESENT ILLNESS: Ms. Toscano is a 63-year-old female, who has a metastatic breast cancer. She was diagnosed in early 2016. She has undergone several chemo treatments. Most recently, she completed Adriamycin and Cytoxan. Over the last several weeks, she has been struggling with nausea, abdominal pain, diarrhea, and has had multiple admissions for dehydration. She has been struggling with cytopenias with the Adriamycin. She saw Dr. Mejia on September 12. Her white count at that time was 2.2 and platelets were 65,000. In the last several days, she has had fatigue and developed fever yesterday and came to the emergency room for evaluation. Her white count on arrival was 1.4. She had 23% neutrophils and 13% bands. Her LFTs were elevated with bilirubin of 1.6, AST is 136, ALT of 60, and her alkaline phosphatase was 394. Her lactic acid was 2.3. She was admitted for possible UTI and started on empiric antibiotics and IV fluids. She is feeling somewhat better today. She has been afebrile since admission. PAST MEDICAL HISTORY: Metastatic breast cancer. PAST SURGICAL HISTORY: Jaw surgery, oophorectomy, and exploratory lap. ALLERGIES: TO LEVOTHYROXINE, BACTRIM, AND ALKALINE OINTMENT. HOME MEDICATIONS: Compazine p.r.n. FAMILY HISTORY: Noncontributory. SOCIAL HISTORY: , lives with her spouse. No alcohol, tobacco, or illicit drug use. REVIEW OF SYSTEMS: A 10-point review of systems is negative except for noted in HPI. PHYSICAL EXAMINATION: VITAL SIGNS: Temperature is 98.1, pulse is 105, respiratory rate is 16, BP is 96/61, and she is 99% on room air. GENERAL: Well-developed, well-nourished female, in no acute distress. HEENT: Normocephalic and atraumatic. Pupils are equal and reactive to light. NECK: Supple. CV: Regular rate and rhythm. LUNGS: Clear. ABDOMEN: Soft and nontender. Bowel sounds are positive. EXTREMITIES: There is no clubbing, cyanosis, or edema. SKIN: No rash. HEMATOLOGIC: No petechiae or purpura. NEUROLOGIC: Nonfocal. PERTINENT LABS AND X-RAYS: Current WBCs 1.4, hemoglobin 10.6, hematocrit 33.3, and platelet count is 64,000. Sodium is 134, potassium is 3.9, chloride is 99, CO2 is 24, BUN is 11, creatinine is 0.7, lactic acid is 1.6, calcium is 9.7, bilirubin is 1.6, AST is 136, ALT is 60, alkaline phosphatase is 394, serum total protein is 6.6, albumin is 3.6, and globulin is 3.0. Urine is negative for bacteria. ASSESSMENT: 1. Neutropenic fever, status post chemotherapy. 2. Metastatic breast cancer. 3. Elevated LFTs. DISCUSSION: The patient has been started on empiric antibiotics and has been afebrile since admission. Her jump in LFTs is new. She does have liver lesions; however, her recent CT scan showed stable disease. We will follow her LFTs in the outpatient setting. She is due to start a new chemo regimen on Saturday. We would recommend discharge once she improves and she will follow up in our clinic. Thank you for the consult. Job ID: [id number]
[2018-09-18] MEDS: Prochlorperazine Maleate 5 MG TAB PO PRN (17:34)
[2018-09-18] MEDS: Cefepime 2 GM in Sodium Chloride 0.9% 100 ML IVPB SCH (17:36)
[2018-09-19] MEDS: Cefepime 2 GM in Sodium Chloride 0.9% 100 ML IVPB SCH ×3 (00:32→16:55)
[2018-09-19 06:29] LABS: Hemoglobin 9.8 g/dL (12.0-16.0); Mean Corpuscular HGB CONC 31.6 g/dL (32.0-36.0); Mean Corpuscular Hemoglobin 31.8 pg (27.0-31.0); Mean Platelet Volume 9.9 fL (7.4-10.4); Platelet Count 47 thou/uL (130-400); Red Blood Cell (RBC) Count 3.08 mill/uL (4.20-5.40); White Blood Cell (WBC) Count 1.2 thou/uL (4.8-10.8)
[2018-09-19 06:30] LABS: Anion Gap 12 mmol/L (10-20); BUN (Urea Nitrogen) 6 mg/dL (9.8-20.1); Calc. Creatinine Clearance 102 mL/min (70-130); Calcium 8.7 mg/dL (7.8-10.44); Carbon Dioxide 22 mmol/L (23-31); Chloride 104 mmol/L (98-107); Estimated GFR-MDRD Greater than 90; Glucose 97 mg/dL (80-115); Potassium 3.3 mmol/L (3.5-5.1); Sodium 135 mmol/L (136-145)
[2018-09-19 07:43] LABS: Band 5 % (5-11); Lymphocytes 28 % (21-51); Monocytes 35 % (0-10); Neutrophil 33 % (42-75)
[2018-09-19 07:45] LABS: Platelet Morphology Comment Appears Decreased
[2018-09-19 07:46] LABS: MDiff Complete? YES
[2018-09-19] MEDS: Sodium Chloride 0.9% 1,000 ML IV SCH ×3 (08:09→22:08)
[2018-09-19] MEDS: Vancomycin HCl 1 GM in Premix Bag 1 BAG IVPB SCH (10:57)
--- NOTE | 2018-09-19 11:10 | PRG ---
DATE OF SERVICE: 09/19/2018 SUBJECTIVE: Ms. Toscano is feeling better. She has not run any fever through the night. She does experience some nausea and vomiting, but not with clear liquids. OBJECTIVE: VITAL SIGNS: Her temperature is 98.2, and blood pressure 108/71. LUNGS: Clear. HEART: Reveals a regular rate and rhythm. No murmurs, gallops, or rubs. ABDOMEN: Soft. Bowel sounds present and active. LABORATORY DATA: Her white count is 1.2, hemoglobin 9.8, and hematocrit 30.9. Blood cultures thus far negative. IMPRESSION: 1. Neutropenic fever. 2. History of metastatic breast cancer. PLAN: At this time, the patient's blood cultures are negative. Any source of infection might be UTI, but it does not appear to be an overwhelming infection at this time. She will continue on IV antibiotics for 1 more day. If she is stable and afebrile tomorrow, she probably could be discharged on an oral antibiotic to follow up with Oncology on Saturday. Job ID: [id number]
--- NOTE | 2018-09-19 15:07 | PQF ---
CLINICAL DOCUMENTATION IMPROVEMENT CLARIFICATION FORM: ICD-10 Updated PLEASE DO AN ADDENDUM TO THE PROGRESS NOTE WITH ANY DOCUMENTATION UPDATES OR ADDITIONS AND CARRY THROUGH TO DC SUMMARY. THANK YOU. DATE: 09/19/18 ATTN: DR. MARTINEZ Please exercise your independent, professional judgment in responding to the clarification form. Clinical indicators are provided on the bottom of this form for your review Please check appropriate box(es): [ ] Sepsis due to: (Pna, UTI, gangrenous gall bladder, etc.) Due to: [ ] Device (please specify) [ ] Implant [ ] Graft [ ] Infusion [ ] SIRS due to non-infectious process (please specify etiology) [ ] with organ dysfunction [ ] without organ dysfunction [ ] Severe sepsis with acute organ dysfunction of: (Examples: respiratory failure, encephalopathy, acute kidney failure, other) [ ] Septic Shock [ x ] Localized infection without sepsis [ x] Other diagnosis __neutropenic fever [ ] Unable to determine In addition, please specify: Present on Admission (POA): [x ] Yes [ ] No [ ] Unable to determine For continuity of documentation, please document condition throughout progress notes and discharge summary. Thank You. CLINICAL INDICATORS - SIGNS / SYMPTOMS / LABS PULSE 112 TEMP 101 CHILLS (PER ER NOTE) BANDS 13 RISKS: IMMUNOCOMPROMISED UTI NEUTROPENIA TREATMENT: IV CEFAZOLIN (ER) IV FLUIDS (ER-PRESENT) IV CEFEPIME (09/18-PRESENT) IV VANCOMYCIN (09/18-PRESENT) BLOOD CULTURES [facility] [employer] Winform Viewer (This form is maintained as a part of the permanent medical record) 2014 [employer]. All Rights Reserved FERNANDA [email or web address] Office: [phone] [facility] MEDICAL CENTERMichelle
[2018-09-19] MEDS: Prochlorperazine Maleate 5 MG TAB PO PRN (18:00)
[2018-09-19] MEDS: Vancomycin HCl 1.25 GM in Sodium Chloride 0.9% 250 ML 250 ML IVPB SCH (22:45)
[2018-09-20] MEDS: Cefepime 2 GM in Sodium Chloride 0.9% 100 ML IVPB SCH ×2 (01:31→08:23)
[2018-09-20] MEDS: Sodium Chloride 0.9% 1,000 ML IV SCH (08:24)
[2018-09-20] MEDS: Vancomycin HCl 1.25 GM in Sodium Chloride 0.9% 250 ML 250 ML IVPB SCH (11:14)
[2018-09-20 11:48] VITALS: BP 96/63; TEMP 97.4
--- NOTE | 2018-09-20 22:05 | DIS ---
DATE OF ADMISSION: 09/17/2018 DATE OF DISCHARGE: 09/20/2018 DISCHARGE DIAGNOSES: 1. Neutropenic fever. 2. History of metastatic breast cancer. DISCHARGE MEDICATIONS: Cefdinir 250/5, 5 mL p.o. b.i.d. x10 days. FOLLOWUP: Follow up with Dr. Alexandr Wang. Follow up with Oncology on Saturday. BRIEF HISTORY: This is a 63-year-old white female with a history of metastatic breast cancer who is undergoing chemotherapy at this time. She has done well until recently she developed fever and was admitted for a neutropenic fever. HOSPITAL COURSE: The patient was started on IV antibiotics. Blood cultures were obtained, which were negative. No source of infection was identified. The patient has remained afebrile, is now ready for discharge. She is to follow up with Oncology on Saturday to begin her next round of chemotherapy. She is doing extremely well at this time. She will be discharged on cefdinir antibiotics 250/5, 5 mL p.o. b.i.d., she does not take tablets. Precautions have been given. Her white count went from 1.4 to 1.2, H and H of 9.8 and 30.9, platelet went from 64 to 47. Sodium 135, potassium 3.3, glucose 97. AST 136, ALT 60, alkaline phosphatase 394. Urine did have 7-10 wbc's. Blood cultures have been negative. Job ID: [id number]
== END 2018-09-20 11:54 | disposition home or self-care (01) | DRG 809 ==
LOC: ERS 19:50 → T4-B 22:46
PROVIDERS: ADMIT Family Medicine; ATTEND Family Medicine
DX: D70.1 Agranulocytosis secondary to cancer chemotherapy (principal); C79.9 Secondary malignant neoplasm of unspecified site; N39.0 Urinary tract infection, site not specified; R50.81 Fever presenting with conditions classified elsewhere; T45.1X5A Adverse effect of antineoplastic and immunosuppressive drugs, initial encounter; C50.919 Malignant neoplasm of unspecified site of unspecified female breast; Z88.1 Allergy status to other antibiotic agents
CPT/HCPCS: 36415; 71045; 80048; 80053; 80202; 81003; 81015; 83605; 85025; 87040; 96361; 96365; J0690; J0692; J3370; J3490; J7050; Q0164

== ENCOUNTER 2018-09-23 19:09 | Inpatient (IN) | payer BC ==
--- NOTE | 2018-09-23 20:12 | RAD ---
EXAM: Portable chest PROVIDED CLINICAL HISTORY: Fever COMPARISON: 09/17/2018 FINDINGS: Cardiac and mediastinal silhouette is within normal limits. No focal consolidation, pleural fluid or pneumothorax evident. Right subclavian implanted port is redemonstrated. IMPRESSION: No evidence for an acute cardiopulmonary process.
[2018-09-23] MEDS ORDERED: Cefepime 2 GM VIAL ONE (20:19)
[2018-09-23 20:22] LABS: Hemoglobin 10.1 g/dL (12.0-16.0); Mean Corpuscular HGB CONC 31.9 g/dL (32.0-36.0); Mean Corpuscular Hemoglobin 31.7 pg (27.0-31.0); Mean Corpuscular Volume 99.3 fL (78.0-98.0); Platelet Count 64 thou/uL (130-400); RBC Distribution Width 16.6 % (11.5-14.5); Red Blood Cell (RBC) Count 3.19 mill/uL (4.20-5.40); White Blood Cell (WBC) Count 4.6 thou/uL (4.8-10.8)
[2018-09-23 20:43] LABS: Band 13 % (5-11); Lymphocytes 3 % (21-51); MDiff Complete? YES; Monocytes 18 % (0-10); Neutrophil 65 % (42-75); Nucleated RBC 1 % (0); Platelet Morphology Comment Appears Decreased
[2018-09-23 20:44] LABS: ALT (SGPT) 56 U/L (8-55); AST (SGOT) 137 U/L (5-34); Albumin 3.2 g/dL (3.4-4.8); Alkaline Phosphatase 468 U/L (40-150); Anion Gap 15 mmol/L (10-20); BUN (Urea Nitrogen) 8 mg/dL (9.8-20.1); Bilirubin, Total 2.2 mg/dL (0.2-1.2); Calc. Creatinine Clearance 0 mL/min (70-130); Calcium 9.7 mg/dL (7.8-10.44); Carbon Dioxide 25 mmol/L (23-31); Chloride 98 mmol/L (98-107); Estimated GFR-MDRD Greater than 90; Globulin 2.6 g/dL (2.4-3.5); Glucose 94 mg/dL (80-115); Potassium 3.5 mmol/L (3.5-5.1); Protein, Total 5.8 g/dL (6.0-8.3); Sodium 134 mmol/L (136-145)
[2018-09-23] MEDS ORDERED: Prochlorperazine Maleate 5 MG TAB ONE (21:24)
--- NOTE | 2018-09-23 21:40 | CT ---
EXAM: CT Abdomen Pelvis W Con PROVIDED CLINICAL HISTORY: Nausea and vomiting COMPARISON: 09/07/2018 FINDINGS: Bilateral pleural effusions, right greater than left, increased with respect to prior. Pericardial fl uid again noted also appearing slightly increased with respect to prior. Hepatic metastatic disease is redemonstrated, similar to prior. The solid abdominal organs demonstrat e an otherwise unremarkable CT appearance. There is free intraperitoneal fluid noted within the pelvis and left paracolic gutter as well as abou t the hepatic margin. This appears increased in degree with respect to prior study. There is no evidence for bowel obstruction. There is no evidence for pneumoperitoneum. Diffuse osseous metastatic disease is redemonstrated, appearing similar to prior study. Ununited path ologic right sacral fracture redemonstrated. IMPRESSION: Interval increase in pericardial, pleural and intraperitoneal fluid. Otherwise stable exam.4
--- NOTE | 2018-09-23 22:58 | ULT ---
EXAM: Right upper quadrant ultrasound PROVIDED CLINICAL HISTORY: Nausea and vomiting COMPARISON: None FINDINGS: Visualized portions of the pancreas appear normal. Inhomogeneous echotexture of the liver compatible with known hepatic metastatic lesions. Common duct is nondilated. The gallbladder demonstrates no evidence for stones. Nonspecific diffuse gallbladder wall thickening. Director Epidemiology reports a negative sonographic Chamberlain's sign. Right kidney demonstrates no hydronephrosis or mass. Right pleural and free intraperitoneal fluid are demonstrated. IMPRESSION: Peritoneal and right pleural fluid. Nonspecific gallbladder wall thickening. Known hepatic metastatic disease.
[2018-09-23] MEDS ORDERED: Sodium Chloride 0.9% 1,000 ML IV SCH (23:20)
[2018-09-23] MEDS ORDERED: Ondansetron ODT 4 MG TAB SL PRN (23:20)
[2018-09-23] MEDS ORDERED: Ondansetron PF 4 MG/2 ML Vial IVP PRN (23:20)
[2018-09-23] MEDS ORDERED: Acetaminophen 325 MG TAB PO PRN (23:20)
[2018-09-23 23:26] VITALS: BMI 24.2
[2018-09-24 01:10] LABS: Lactic Acid 2.4 mmol/L (0.5-2.2)
[2018-09-24 02:54] LABS: Bacteria/HPF None Seen HPF (None Seen); Bilirubin Negative (Negative); Blood, Urine Negative (Negative); Clarity Clear (Clear); Glucose, Urine (Dipstick) Normal (Negative); Leukocyte Negative Leu/uL (Negative); Nitrite Negative (Negative); Protein, Urine (Dipstick) Negative (Neg-Trace); RBC/HPF 0-3 HPF (0-3); Squamous Epithelial None Seen HPF (0-3); Urobilinogen Normal mg/dL (Less than 2); WBC/HPF 0-3 HPF (0-3)
--- NOTE | 2018-09-24 05:24 | HP ---
PRIMARY CARE PHYSICIAN: Alexandr Wang MD CHIEF COMPLAINT: Fever, abdominal pain, nausea, and vomiting. HISTORY OF PRESENT ILLNESS: This is a 63-year-old female patient with metastatic breast cancer, who was recently admitted on 09/18/2018, with similar complaints. At that time, she was found to have neutropenic fever. Her white blood cell count was down to 1400 with 23 segs and 13 bands. Her cultures were negative at that time. She was treated empirically with antibiotics and quickly improved. She was discharged on 09/20/2018. She still was not feeling 100% at that time. She followed up with Dr. Mejia, was to have a round of chemotherapy earlier this week, but because she was not feeling well, they withheld initiating therapy. She continued to feel badly. She had developed increasing nausea, had chills, and presented back to Urgent Care for further evaluation in [place]. They sent her to [facility] for further admission due to her past history and recent hospitalization. 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 She has been on chemotherapy since that time. Neuropathy and chronic pain. MEDICATIONS: Include Compazine p.r.n. nausea. ALLERGIES: TO CIPRO AND ELOCON. PAST SURGICAL HISTORY: Colonoscopy in 2013, exploratory laparotomy and salpingoplasty in 1987, oophorectomy in 1990, jaw surgery, D and C in 1986, rhinoplasty, septoplasty in 2002. FAMILY HISTORY: Mother of colon cancer, breast cancer. Father of colon cancer. Paternal grandfather with prostate cancer. Paternal grandmother with heart disease. SOCIAL HISTORY: Nonsmoker. She is . Rare alcohol. REVIEW OF SYSTEMS: As per the history of present illness. CONSTITUTIONAL: She admits to the increasing weakness and nausea. Positive chills. Positive fever today to 100.8. HEENT: She has some upper respiratory congestion, but no ear pain. No sore throat. CARDIAC: Denies chest pain, shortness of breath. PULMONARY: Denies cough, hemoptysis. GI: Positive abdominal pain that comes and goes. Positive nausea. No diarrhea. : Denies dysuria, hematuria. NEUROLOGIC: Positive weakness. Positive neuropathic pain. MUSCULOSKELETAL: Occasional back pain. Occasional knee pain. PHYSICAL EXAMINATION: VITAL SIGNS: Temperature up to 100.8 upon admission to the emergency department, now down to 97.8. Pulse is 75, respirations 12, blood pressure is normal, pulse ox is intact. GENERAL: She is awake and alert, in no acute distress. She appears comfortable. Mucosa is moist. HEENT: TMs are clear. Throat is clear. NECK: Supple. No JVD, adenopathy, or bruits. No meningeal signs. HEART: Regular rate and rhythm. LUNGS: Clear bilaterally. ABDOMEN: Positive bowel sounds. Soft, nontender, and nondistended. No hepatosplenomegaly. EXTREMITIES: No clubbing, cyanosis, or edema. 2+ peripheral pulses bilaterally. SKIN: With no rashes. LABORATORY DATA: White blood cell count 4600, 65% neutrophils, 13% bands with absolute neutrophil count of 1600. Hemoglobin and hematocrit 10.1 and 31.7 with microcytic indices, platelets of 64. Sodium 134, potassium 3.5, chloride 98, CO2 of 25, BUN and creatinine 8 and 0.62 with a GFR of 90. Lactic acid was elevated at 2.9. Total bilirubin elevated at 2.2, which is higher than her baseline. AST and ALT are elevated at 137 and 56, alkaline phosphatase elevated at 468, which has been rising since June 2019. Albumin 3.2. Chest x-ray showed no active disease. Abdominal and pelvic CT revealed bilateral pleural effusions, right greater than left, hepatic metastatic disease is demonstrated, free intraperitoneal fluid in the pelvic and left paracolic gutters, diffuse osseous metastatic disease. ASSESSMENT AND PLAN: 1. This is a 63-year-old female patient with metastatic breast cancer to her bones and liver, now with an another episode of fever. She is not as neutropenic as she was on her last admission. We will continue coverage with broad-spectrum antibiotics. Awaiting her blood and urine cultures. 2. Abdominal pain with rising obstructive markers on her chemistry. Agree with abdominal ultrasound which has been ordered to rule out any biliary stasis as a source of her fever and abdominal pain. 3. Breast cancer. We will consult Oncology for further recommendations. Job ID: [id number]
[2018-09-24 06:40] LABS: ALT (SGPT) 45 U/L (8-55); AST (SGOT) 107 U/L (5-34); Albumin 2.6 g/dL (3.4-4.8); Alkaline Phosphatase 370 U/L (40-150); Anion Gap 12 mmol/L (10-20); BUN (Urea Nitrogen) 6 mg/dL (9.8-20.1); Bilirubin, Total 2.1 mg/dL (0.2-1.2); Calc. Creatinine Clearance 124 mL/min (70-130); Calcium 8.8 mg/dL (7.8-10.44); Carbon Dioxide 24 mmol/L (23-31); Chloride 103 mmol/L (98-107); Estimated GFR-MDRD Greater than 90; Globulin 2.2 g/dL (2.4-3.5); Glucose 81 mg/dL (80-115); Potassium 3.4 mmol/L (3.5-5.1); Protein, Total 4.8 g/dL (6.0-8.3); Sodium 136 mmol/L (136-145)
[2018-09-24 06:47] LABS: Band 11 % (5-11); Hemoglobin 8.8 g/dL (12.0-16.0); Lymphocytes 12 % (21-51); MDiff Complete? YES; Mean Corpuscular HGB CONC 31.6 g/dL (32.0-36.0); Mean Corpuscular Hemoglobin 31.7 pg (27.0-31.0); Mean Platelet Volume 10.6 fL (7.4-10.4); Monocytes 29 % (0-10); Neutrophil 48 % (42-75); Platelet Count 45 thou/uL (130-400); Platelet Morphology Comment Appears Decreased; RBC Distribution Width 16.4 % (11.5-14.5); Red Blood Cell (RBC) Count 2.76 mill/uL (4.20-5.40); White Blood Cell (WBC) Count 2.2 thou/uL (4.8-10.8)
[2018-09-24] MEDS ORDERED: Sodium Chloride 0.9% 1,000 ML IV SCH (07:41)
[2018-09-24] MEDS ORDERED: NS 0.9% w/ 20 MEQ KCL 1,000 ML IV SCH (08:00)
[2018-09-24 08:39] VITALS: TEMP 97.5
[2018-09-24] MEDS ORDERED: Cefepime 2 GM in Sodium Chloride 0.9% 100 ML IVPB SCH (09:00)
--- NOTE | 2018-09-24 10:52 | PRG ---
DATE OF SERVICE: 09/24/2018 SUBJECTIVE: The patient is feeling okay this morning. No complaints of fever, nausea, or vomiting. She was admitted last night with neutropenic fever. She was in the hospital last week for a similar issue. OBJECTIVE: VITAL SIGNS: Temperature 98.6, pulse 93, respirations 16, pulse ox 95% on room air, and blood pressure 107/61. HEART: Regular rate and rhythm. LUNGS: Clear. ABDOMEN: Soft and nontender. EXTREMITIES: No edema. LABORATORY DATA: Blood cultures from the past week and month have been negative. White count went from 4.6 to 2.2, H and H are 8.8 and 27.7. Electrolytes; sodium 136, potassium 3.4, creatinine 0.54, alkaline phosphatase 468 to 370, AST 107, and ALT 45. ASSESSMENT: 1. Neutropenic fever. 2. Metastatic breast cancer with metastases to bone and liver. 3. Anemia of chronic disease. 4. Gallbladder wall thickening with elevated liver function tests, probably due to be metastatic disease. No Homans' sign noted, but must keep in mind. PLAN: 1. Blood cultures and urine culture are pending. 2. Add potassium to her IV fluids. 3. Await Dr. Mejia' consult. 4. Repeat labs in a.m. Job ID: [id number]
[2018-09-24 12:12] VITALS: BP 126/61
--- NOTE | 2018-09-24 13:09 | CON ---
DATE OF CONSULTATION: REASON FOR CONSULTATION: Metastatic breast cancer. HISTORY OF PRESENT ILLNESS: Ms. Toscano is a pleasant 63-year-old female, who has metastatic breast cancer and recently completed Adriamycin and Cytoxan. This was about 4 weeks ago. She has been struggling with nausea, chills, fever, and diarrhea and has had multiple admissions for dehydration. She was recently discharged from this facility on September 20. She was seen by Dr. Mejia on September 22. She was feeling better. She was due to start a new chemo regimen; however, ANC was still low at 1.1. She was to recover over this next week and return next Saturday to begin Halaven. However, yesterday she had an episode of chills with a temperature of 100.8 and then she became nauseated and throw up. She went to the urgent care in [place], who sent her to the emergency room and she was thus transferred here for neutropenic fever. In the emergency room, her white count was 4.6 with 65% neutrophils and 13% lymphocytes. Hemoglobin was 10.1, and her platelet count was 64,000. She was given cefepime and IV fluids, and is feeling much better today. PAST MEDICAL HISTORY: Metastatic breast cancer. PAST SURGICAL HISTORY: Jaw surgery, oophorectomy, and exploratory lap. ALLERGIES: LEVOTHYROXINE, BACTRIM, CIPRO, OINTMENT. HOME MEDICATIONS: Compazine p.r.n. FAMILY HISTORY: Noncontributory. SOCIAL HISTORY: , lives with spouse. REVIEW OF SYSTEMS: A 10-point review of systems is negative. PHYSICAL EXAMINATION: VITAL SIGNS: Temperature is 97.5, pulse is 85, respiratory rate 18, blood pressure is 111/63. She is 97% on room air. GENERAL: Well-developed, well-nourished female, in no acute distress. HEENT: Normocephalic and atraumatic. NECK: Supple. CV: Regular rate and rhythm. LUNGS: Clear anterior. ABDOMEN: Soft and nontender. Bowel sounds are positive. EXTREMITIES: No clubbing, cyanosis, or edema. SKIN: No rash. HEMATOLOGIC: No petechiae or purpura. NEUROLOGIC: Nonfocal. PSYCHIATRIC: She is alert, oriented, and appropriate. PERTINENT LABS AND X-RAYS: Current WBCs are 2.2, hemoglobin 8.8, hematocrit 27.7, platelet count is 45,000. She has 48% neutrophils, 11% bands, 12% lymphocytes, 29% monocytes. Sodium is 136, potassium 3.4, chloride 103, CO2 is 24, BUN is 6, creatinine 0.54, calcium is 8.8. Bilirubin is 2.1, albumin 107, ALT is 45, alkaline phosphatase is 370. Serum total protein 4.8, albumin 2.6, and globulin 2.2. CT scan of the abdomen and pelvis showed interval increase in pericardial, pleural, intraperitoneal fluid, otherwise stable exam. ASSESSMENT: 1. Metastatic breast cancer. 2. Intermittent neutropenia, likely secondary to chemotherapy and bone marrow involvement. 3. Elevated LFTs, stable since prior hospitalization. 4. Intermittent fever, possibly tumor related. DISCUSSION: The patient feels significantly better. She has had no fever since admission. Her blood cultures are negative thus far. Case was discussed with Dr. Mejia and recommend her starting Aleve b.i.d. for and she will return on Saturday at 1:15 to our clinic for evaluation and possible chemo. Thank you for the consult. Job ID: [id number]
--- NOTE | 2018-09-24 14:18 | DIS ---
DATE OF ADMISSION: 09/23/2018 DATE OF DISCHARGE: 09/24/2018 DISCHARGE DIAGNOSES: 1. Neutropenic fever. 2. Metastatic breast cancer with metastases to the bone and liver. 3. Anemia of chronic disease. BRIEF HISTORY: This is a 63-year-old white female with metastatic breast cancer, receiving chemotherapy from Dr. Mejia. She presented to the ER with neutropenic fever. She was hospitalized last week for similar issue. Her workup is in progress. HOSPITAL COURSE: The patient was seen by Devora Maria and felt that the patient was having fever and chills from the cancer load. Did not feel that this was infectious in nature. She is recommending discharge and to follow up with Dr. Mejia in the office. Precautions have been given. See progress note dated today also. Job ID: [id number]
== END 2018-09-24 13:20 | disposition home or self-care (01) | DRG 809 ==
LOC: ERS 19:09 → ONC 23:09
PROVIDERS: ADMIT Family Medicine; ATTEND Family Medicine
DX: D70.9 Neutropenia, unspecified (principal); C79.51 Secondary malignant neoplasm of bone; C78.7 Secondary malignant neoplasm of liver and intrahepatic bile duct; R50.81 Fever presenting with conditions classified elsewhere; C50.912 Malignant neoplasm of unspecified site of left female breast; D63.8 Anemia in other chronic diseases classified elsewhere; Z88.1 Allergy status to other antibiotic agents; Z88.8 Allergy status to other drugs, medicaments and biological substances
CPT/HCPCS: 36415; 71045; 74177; 76705; 80053; 81003; 82565; 83605; 85025; 87040; 87086; 96365; 96367; J0692; J3370; J3480; J3490; Q0164; Q9967

== ENCOUNTER 2018-10-04 12:56 | Inpatient (IN) | payer BC ==
--- NOTE | 2018-10-04 13:43 | RAD ---
PORTABLE CHEST 1 VIEW: Date: 10/04/18 Time: 1320 hours HISTORY: Fever. Last chemo for breast cancer was on 09/29/18. FINDINGS/IMPRESSION: Comparison made with exam of 09/23/18. A small left pleural effusion has developed in the interim with adjacent infiltrate/atelectatic douglas e. The heart size is normal. The right lung is clear. A right-sided Port-A-Cath remains in place. The possibility of pneumonia should be considered. POS: KIP
[2018-10-04 13:48] LABS: Hemoglobin 9.7 g/dL (12.0-16.0); Mean Corpuscular HGB CONC 34.1 g/dL (32.0-36.0); Mean Corpuscular Hemoglobin 33.6 pg (27.0-31.0); Mean Corpuscular Volume 98.5 fL (78.0-98.0); Mean Platelet Volume 12.7 fL (7.4-10.4); Platelet Count 13 thou/uL (130-400); RBC Distribution Width 17.4 % (11.5-14.5); Red Blood Cell (RBC) Count 2.89 mill/uL (4.20-5.40); White Blood Cell (WBC) Count 0.8 thou/uL (4.8-10.8)
[2018-10-04 13:49] LABS: Bilirubin Large (Negative); Blood, Urine Negative (Negative); Leukocyte Negative (Negative); Nitrite Negative (Negative); Protein, Urine (Dipstick) 30 mg/dL (Neg-Trace); Urobilinogen > or = 8.0 mg/dL (Less than 2)
[2018-10-04 13:58] LABS: Clarity Clear (Clear)
[2018-10-04 13:59] LABS: Glucose, Urine (Dipstick) Unable to Interpret mg/dL (Negative)
[2018-10-04 14:00] LABS: Anisocytosis SLIGHT = 6-15 cells (100X) (0-5/hpf); Eosinophils 2 % (0-10); Large Platelets SLIGHT; Lymphocytes 18 % (21-51); MDiff Complete? YES; Monocytes 9 % (0-10); Neutrophil 69 % (42-75); Platelet Morphology Comment Appears Decreased; Polychromasia SLIGHT = 2-3 cells (100X) (0-2/hpf); Reactive Lymphocytes 1 % (0-10)
[2018-10-04 14:01] LABS: Bacteria/HPF None Seen HPF (None Seen); RBC/HPF 0-3 HPF (0-3); Transitional Epithelial 0-3 HPF (None Seen); WBC/HPF 0-3 HPF (0-3)
[2018-10-04 14:02] LABS: Mucous/LPF 3+ LPF (<2+)
[2018-10-04 14:53] LABS: ALT (SGPT) 66 U/L (8-55); AST (SGOT) 270 U/L (5-34); Albumin 2.5 g/dL (3.4-4.8); Alkaline Phosphatase 505 U/L (40-150); Anion Gap 12 mmol/L (10-20); BUN (Urea Nitrogen) 7 mg/dL (9.8-20.1); Bilirubin, Total 5.2 mg/dL (0.2-1.2); Calc. Creatinine Clearance 0 mL/min (70-130); Calcium 8.1 mg/dL (7.8-10.44); Carbon Dioxide 25 mmol/L (23-31); Chloride 101 mmol/L (98-107); Estimated GFR-MDRD Greater than 90; Globulin 2.2 g/dL (2.4-3.5); Glucose 99 mg/dL (80-115); Potassium 3.4 mmol/L (3.5-5.1); Protein, Total 4.7 g/dL (6.0-8.3); Sodium 135 mmol/L (136-145)
[2018-10-04] MEDS ORDERED: cefTRIAXone\\ROCEPHIN 1 GM VIAL ONE (14:53)
[2018-10-04] MEDS ORDERED: Azithromycin 500 MG VIAL ONE (14:53)
[2018-10-04] MEDS ORDERED: Morphine 4 MG/ML VIAL ONE (16:49)
[2018-10-04 16:55] LABS: INR-International Normal Ratio 1.1; PTT 38.4 SEC (22.9-36.1)
[2018-10-04 17:40] LABS: Lactic Acid 2.1 mmol/L (0.5-2.2)
[2018-10-04 19:36] VITALS: BMI 25.6
[2018-10-04] MEDS ORDERED: Ondansetron ODT 4 MG TAB SL PRN (19:43)
[2018-10-04] MEDS ORDERED: Ondansetron PF 4 MG/2 ML Vial IVP PRN (19:43)
[2018-10-04] MEDS ORDERED: Acetaminophen 325 MG TAB PO PRN (19:43)
[2018-10-04] MEDS: Sodium Chloride 0.9% 1,000 ML IV SCH (19:45)
[2018-10-04] MEDS ORDERED: Prochlorperazine Maleate 5 MG TAB PO PRN (20:08)
[2018-10-04] MEDS ORDERED: Milk Of Magnesia 30 ML UDCUP PO PRN (20:15)
--- NOTE | 2018-10-04 20:50 | RAD ---
CHEST ONE VIEW: 10/04/18 INDICATION: History of pneumonia. COMPARISON: Prior exam dated 10/04/18 at 1:20 p.m. FINDINGS: The left lower lobe air space opacity persists. The small left pleural effusion is stable. The right lung is clear. The right chest wall port is unchanged. Heart size is normal. Osseous structures are u nchanged. IMPRESSION: Persistent left lower lobe air space opacity suspicious for pneumonia with associated parapneumonic e ffusion. Continued radiographic follow-up is recommended. POS: BH
--- NOTE | 2018-10-04 21:10 | HP ---
PRIMARY CARE PHYSICIAN: Dr. Alexandr Wang. CHIEF COMPLAINT: Weakness and cough. HISTORY OF PRESENT ILLNESS: This is a 63-year-old female patient with metastatic breast cancer with mets to the bone and liver, who has had several hospitalizations over the past month for similar symptoms since starting her chemotherapy consisting of Adriamycin and Cytoxan. She was admitted on 09/08/2018, 09/18/2018, 2018, and [facility]. She had her last chemotherapy treatment 5 days ago. She started feeling more weak, difficulty getting around. She was more confused and hard time focusing while she was at work. About 3 days ago, she developed more cough and shortness of breath, increased back pain requiring more [place] and then subsequently developing some constipation. Over the past day, she has developed more sores in her mouth and decreased appetite, difficulty swallowing. She decided to come to the emergency department for evaluation. She was found to have a possible pneumonia and once again with neutropenia, but no fever at this time. Her platelet count had decreased again back to where it was in June 2018. She now being admitted for further evaluation and treatment for her pneumonia and neutropenia. 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 MEDICATIONS: Include Compazine p.r.n. nausea. ALLERGIES: TO CIPRO AND ELOCON. PAST SURGICAL HISTORY: Colonoscopy in 2013, exploratory laparotomy and salpingoplasty in 1987, oophorectomy in 1990, jaw surgery in 1986, D and C in 1986, rhinoplasty and septoplasty in 2002. FAMILY HISTORY: Mother of colon cancer and breast cancer. Father of colon cancer. Paternal grandfather of prostate cancer. Paternal grandmother with heart disease. SOCIAL HISTORY: Nonsmoker. She is . She continues to work. Rare alcohol. REVIEW OF SYSTEMS: As per the history of present illness. GENERAL: She admits to increased weakness and nausea. No fevers at this time. HEENT: Sore throat. Difficulty swallowing. Some cough. No congestion. CARDIAC: Denies chest pain or shortness of breath. PULMONARY: Positive cough. No hemoptysis. Appears to be a dry hacking cough. GI: Abdominal pain that comes and goes. Positive nausea. No diarrhea at this time. : No dysuria or hematuria. NEUROLOGIC: Positive weakness. Positive chronic pain. MUSCULOSKELETAL: Positive back pain, worse in the right sciatic area. PHYSICAL EXAMINATION: VITAL SIGNS: Temperature 98.3, pulse of 111, respirations 16, blood pressure 118/66, and pulse ox 97% on room air. GENERAL: She is awake and alert. She appears comfortable, but has pain with movement. Mucosa is dry with few sores on her tongue and buccal mucosa. NECK: Supple. HEART: Tachycardic. LUNGS: Clear anteriorly with decreased breath sounds at the bases. Possible mild rhonchi. ABDOMEN: Soft, diffuse tenderness, worse in the right upper quadrant. No rebound. No guarding. No peritoneal signs. EXTREMITIES: No clubbing, cyanosis, or edema. She has painful range of motion of her hips. LABORATORY DATA: White blood cell count 800 with 69% neutrophils, 18% lymphocytes. ANC of 550 Hemoglobin and hematocrit of 9.7 and 28.5, which appears to be her baseline with macrocytic indices. Platelet count is 13,000; 10 days ago, she was 45,000. Chest x-ray revealed small left pleural effusion, possible pneumonia. ASSESSMENT AND PLAN: This is a 63-year-old female patient of Dr. Alexandr Wang with a history of metastatic breast cancer, now being admitted for increased weakness , found to have possible pneumonitis and neutropenic again after her last chemotherapy. 1. Pneumonitis. We will broaden her antibiotics with Maxipime and vancomycin. 2. Neutropenia and thrombocytopenia, likely secondary to chemotherapy. Dr. Mejia is covering for the weekend. Await his evaluation. 3. Transaminitis with rising obstructive markers, likely secondary to her liver metastasis. 4. Mucositis in her mouth. We will start Magic mouthwash p.r.n. 5. We will consult palliative Care for other symptom management. Job ID: [id number] [facility]
[2018-10-04] MEDS: Cefepime 1 GM in Sodium Chloride 0.9% 100 ML IVPB SCH (21:11)
[2018-10-04] MEDS: Aluminum & Magnesium Hydroxide 60 ML, diphenhydrAMINE 150 MG, Lidocaine 2% Viscous Solu... SSW PRN (21:16)
[2018-10-04] MEDS: Vancomycin HCl 1.5 GM in Sodium Chloride 0.9% 250 ML 300 ML IVPB SCH (21:19)
[2018-10-04] MEDS: Docusate 100 MG CAP PO SCH (21:27)
[2018-10-04] MEDS: Morphine 2 MG/ML SYRINGE SLOW IVP PRN (21:27)
[2018-10-05] MEDS: Sodium Chloride 0.9% 1,000 ML IV SCH (03:17)
[2018-10-05 04:17] LABS: Mean Corpuscular HGB CONC 33.6 g/dL (32.0-36.0); Mean Platelet Volume 12.5 fL (7.4-10.4); Platelet Count 8 thou/uL (130-400); RBC Distribution Width 16.8 % (11.5-14.5); Red Blood Cell (RBC) Count 2.35 mill/uL (4.20-5.40); White Blood Cell (WBC) Count 0.4 thou/uL (4.8-10.8)
[2018-10-05 04:34] LABS: ALT (SGPT) 65 U/L (8-55); AST (SGOT) 259 U/L (5-34); Albumin 2.5 g/dL (3.4-4.8); Alkaline Phosphatase 446 U/L (40-150); Anion Gap 12 mmol/L (10-20); BUN (Urea Nitrogen) 8 mg/dL (9.8-20.1); Bilirubin, Total 4.3 mg/dL (0.2-1.2); Calc. Creatinine Clearance 141 mL/min (70-130); Calcium 7.9 mg/dL (7.8-10.44); Carbon Dioxide 24 mmol/L (23-31); Chloride 103 mmol/L (98-107); Estimated GFR-MDRD Greater than 90; Globulin 2.3 g/dL (2.4-3.5); Glucose 80 mg/dL (80-115); Potassium 3.4 mmol/L (3.5-5.1); Protein, Total 4.8 g/dL (6.0-8.3); Sodium 136 mmol/L (136-145)
[2018-10-05] MEDS: D5 1/2 NS w/20 mEq KCL 1,000 ML IV SCH ×2 (09:20→20:13)
[2018-10-05] MEDS: Cefepime 1 GM in Sodium Chloride 0.9% 100 ML IVPB SCH ×2 (09:20→20:17)
[2018-10-05] MEDS: Morphine 2 MG/ML SYRINGE SLOW IVP PRN ×2 (09:21→21:55)
[2018-10-05] MEDS: Docusate 100 MG CAP PO SCH ×3 (09:21→20:25)
[2018-10-05] MEDS: Aluminum & Magnesium Hydroxide 60 ML, diphenhydrAMINE 150 MG, Lidocaine 2% Viscous Solu... SSW PRN ×2 (09:22→14:56)
--- NOTE | 2018-10-05 09:24 | PRG ---
DATE OF SERVICE: 10/05/2018 PRIMARY CARE PHYSICIAN: Dr. Alexandr Wang. SUBJECTIVE: The patient continues to be weak. States she has difficulty swallowing due to sores in her mouth, taking small sips of water and small bites. Positive cough. Positive shortness of breath. OBJECTIVE: VITAL SIGNS: Temperature 99.1, which is her T-max, pulse of 116, respirations 16, blood pressure 102/61. GENERAL: She is awake and alert, appears weak in bed. Positive jaundice. NECK: Supple. HEART: Tachycardic. LUNGS: Decreased breath sounds, scattered rhonchi that clear with cough. ABDOMEN: Soft. No hepatosplenomegaly. EXTREMITIES: Trace edema bilaterally. LABORATORY DATA: White blood cell count of 400, hemoglobin and hematocrit 8.0 and 23.8, platelets of 8000. Sodium 136, potassium 3.4, chloride 103, CO2 of 24, BUN and creatinine 8 and 0.5, serum glucose of 80, total bilirubin 4.3, AST and ALT elevated at 259 and 65, alkaline phosphatase of 446, albumin of 2.5. Chest x-ray revealing left lower lobe infiltrate. ASSESSMENT AND PLAN: This is a 63-year-old with left-sided breast cancer with metastasis to her bone and liver, admitted with pneumonia and neutropenia. 1. Pneumonia. We will continue her antibiotics including Maxipime and vancomycin. 2. Neutropenia and thrombocytopenia. We will start platelet transfusion. Oncology to see for further evaluation, possibly starting Neupogen to help increase white blood cells. 3. Transaminitis, likely secondary to her metastasis. 4. Mucositis. We will continue Magic mouthwash. 5. Failure to thrive secondary to metastatic cancer. We will continue Palliative Care to see. We will start Ensure cans b.i.d. Job ID: [id number]
[2018-10-05] MEDS: Vancomycin HCl 1.5 GM in Sodium Chloride 0.9% 250 ML 300 ML IVPB SCH ×2 (10:41→20:21)
--- NOTE | 2018-10-05 13:19 | CON ---
DATE OF CONSULTATION: REASON FOR CONSULTATION: Breast cancer and pancytopenia. HISTORY OF PRESENT ILLNESS: A 63-year-old female with metastatic breast cancer to bones and liver, who has last received chemotherapy with Halaven on September 29 under the direction of Dr. Mejia, presenting to the hospital with cough, weakness, and worsening mouth sores and otherwise just not feeling well. The patient called me yesterday with these same complaints as she was on her way to the ER. She has been admitted with these similar complaints multiple times in the past few months. She had prolonged pancytopenia from her last chemotherapy 3 to 4 weeks prior and was switched to Halaven and received her first dose on September 29. Her white blood cell at that time was 6.8, and platelets were 91. She came to the clinic on October 02, for IV fluids and white blood cell count of 3.1 at that time. On presentation to the hospital, chest x-ray showed a small left pleural effusion with adjacent infiltrate/atelectatic change concerning for potential pneumonia. Given her blood counts and symptoms, she was started on appropriate antibiotics. Her white blood cell on admission was 0.8 and platelet count of 13. This morning, white blood cells 0.4, and platelet count of 8. She is now status post 1 unit platelets transfused. She also complains of worsening mouth sores that has somewhat improved with her Magic Mouthwash. She states that she does not want any more chemotherapy in the future. REVIEW OF SYSTEMS: Ten-point review of systems is negative, except as stated in the HPI. PAST MEDICAL HISTORY: Breast cancer, chronic neuropathy, and chronic pain syndrome. PAST SURGICAL HISTORY: Exploratory laparotomy and salpingoplasty in 1987, oophorectomy in 1990, jaw surgery in 1986, D and C in 1986, rhinoplasty and septoplasty in 2002. FAMILY HISTORY: Colon cancer and breast cancer in her mother. Colon cancer in her father. Prostate cancer in her paternal grandfather. SOCIAL HISTORY: She is a nonsmoker with rare alcohol and has continued to work during her chemotherapy. ALLERGIES: TO CIPRO AND ELOCON. CURRENT MEDICATIONS: Reviewed by me. PHYSICAL EXAMINATION: VITAL SIGNS: T-max 100.0, pulse 106 to 127, and 94% on room air, blood pressure 106/59. GENERAL: The patient is lying in bed, in no acute distress and appears comfortable. NECK: Supple. HEART: S1 and S2. Tachycardic. LUNGS: Clear to auscultation anteriorly with some mild decreased sounds at the bases. ABDOMEN: Soft with mild central lower tenderness without guarding. EXTREMITIES: No edema. LABORATORY DATA: White blood cells 0.4, hemoglobin 8, platelets 8. Sodium 136, potassium 3.4, BUN 8, creatinine 0.50, total bilirubin 4.3, AST 259, ALT 65, alkaline phosphatase 446, albumin 2.5. Urine is orange with large bilirubin and high urobilinogens without any bacteria seen. IMAGING DATA: Chest x-ray showed suspicion of pneumonia. ASSESSMENT/PLAN: A 63-year-old female with metastatic breast cancer, currently on [place], last received on September 29, presenting with profound neutropenia and thrombocytopenia with fever and suspicion for pneumonia. Currently, on antibiotics. We will start the patient on Neupogen and continue antibiotics. She is status post 1 unit of platelets transfused and recommend repeat transfusion. Platelets dropped to 10, again. Recommend transfuse packed red blood cells, if hemoglobin drops less than 7. Continue Magic Mouthwash for her oral ulcers and encourage participation with physical therapy. The patient states that she does not desire any more chemotherapy in the future, and if this is the case, then hospice maybe a good decision for her; however, I relieve this to Dr. Mejia to discuss with her as her acute status improves. Job ID: [id number] [facility]
[2018-10-06] MEDS: D5 1/2 NS w/20 mEq KCL 1,000 ML IV SCH ×6 (04:00→23:37)
[2018-10-06 04:46] LABS: Hemoglobin 6.7 g/dL (12.0-16.0); Mean Corpuscular HGB CONC 34.3 g/dL (32.0-36.0); Mean Corpuscular Hemoglobin 34.4 pg (27.0-31.0); Mean Platelet Volume 10.2 fL (7.4-10.4); Platelet Count 22 thou/uL (130-400); RBC Distribution Width 17.2 % (11.5-14.5); Red Blood Cell (RBC) Count 1.94 mill/uL (4.20-5.40); White Blood Cell (WBC) Count 0.3 thou/uL (4.8-10.8)
[2018-10-06] MEDS ORDERED: Sodium Chloride 0.9% 500 ML IV SCH (05:00)
[2018-10-06 05:01] LABS: ALT (SGPT) 50 U/L (8-55); AST (SGOT) 192 U/L (5-34); Albumin 2.4 g/dL (3.4-4.8); Alkaline Phosphatase 361 U/L (40-150); Anion Gap 10 mmol/L (10-20); BUN (Urea Nitrogen) 6 mg/dL (9.8-20.1); Bilirubin, Total 4.2 mg/dL (0.2-1.2); Calc. Creatinine Clearance 147 mL/min (70-130); Calcium 7.4 mg/dL (7.8-10.44); Carbon Dioxide 23 mmol/L (23-31); Chloride 104 mmol/L (98-107); Estimated GFR-MDRD Greater than 90; Globulin 2.1 g/dL (2.4-3.5); Glucose 147 mg/dL (80-115); Potassium 3.2 mmol/L (3.5-5.1); Protein, Total 4.5 g/dL (6.0-8.3); Sodium 134 mmol/L (136-145)
[2018-10-06 05:12] LABS: Hypochromia SLIGHT = 6-15 cells (100X) (0-5/hpf); MDiff Complete? YES; Platelet Morphology Comment Appears Decreased
--- NOTE | 2018-10-06 07:45 | RAD ---
EXAM: Single view of the chest HISTORY: Pneumonia COMPARISON: 10/04/2018 FINDINGS: Single view of the chest shows a normal sized cardiomediastinal silhouette. There is a sma ll to moderate left pleural effusion. This has increased in size compared to the prior examination. The Mediport is unchanged in position. The bones are unremarkable. IMPRESSION: Enlarging left pleural effusion
[2018-10-06 08:33] LABS: Vancomycin, Trough 13.9 ug/mL
[2018-10-06] MEDS: Docusate 100 MG CAP PO SCH ×2 (08:37→21:00)
[2018-10-06] MEDS: Cefepime 1 GM in Sodium Chloride 0.9% 100 ML IVPB SCH ×2 (08:38→20:28)
[2018-10-06] MEDS: Vancomycin HCl 1.5 GM in Sodium Chloride 0.9% 250 ML 300 ML IVPB SCH ×2 (10:07→20:35)
[2018-10-06] MEDS: Aluminum & Magnesium Hydroxide 60 ML, diphenhydrAMINE 150 MG, Lidocaine 2% Viscous Solu... SSW PRN (10:09)
[2018-10-06] MEDS: Morphine 2 MG/ML SYRINGE SLOW IVP PRN (13:30)
[2018-10-06] MEDS: Acyclovir Sodium 660 MG in Sodium Chloride 0.9% 100 ML IVPB SCH ×2 (13:50→22:50)
--- NOTE | 2018-10-06 14:34 | PQF ---
DATE: 10-06-18 ATTN: DR. RYLIE ROBLES Please exercise your independent, professional judgment in responding to the clarification form. Clinical indicators are provided on the bottom of this form for your review Please check appropriate box(s): [ ] Aspiration Pneumonia [ ] Empirically treating Gram Negative Pneumonia [ xx ] Other diagnosis _poss Institution acquired pneumonia_ [ ] Unable to determine In addition, please specify: Present on Admission (POA): [ xx ] Yes [ ] No [ ] Unable to determine For continuity of documentation, please document condition throughout progress notes and discharge summary. Thank You. CLINICAL INDICATORS - SIGNS / SYMPTOMS / LABS: ER DX: METASTATIC BREAST CA, PNEUMONIA, THROMBOCYTOPENIA H&P: WEAKNESS AND COUGH, MORE CONFUSED AND HARD TIME FOCUSING AT WORK, DEVELOPED MORE COUGH AND SOB, DEVELOPED MORE SORE IN HER MOUTH AND DECREASED APPETITE, DIFFICULTY SWALLOWING H&P: PNEUMONITIS TEMP: 10-05-18: 100, 99.1, 99.2, 99.4 RISK FACTORS: H&P: WEAKNESS AND COUGH, MORE CONFUSED AND HARD TIME FOCUSING AT WORK, DEVELOPED MORE COUGH AND SOB, DEVELOPED MORE SORE IN HER MOUTH AND DECREASED APPETITE, DIFFICULTY SWALLOWING TREATMENTS: ER: IVF, AZITHROMYCIN, CEFTRIAXONE MAR: 10-05-18: IVF, MAXIPIME, VANCOMYCIN (This form is maintained as a part of the permanent medical record) 2015 [employer], [employer]. All Rights Reserved MTDD
--- NOTE | 2018-10-06 14:37 | PDOC.PALCO ---
Palliative Care Consult - Consult Details Requesting Physician: Dr Mclain Reason for Consult: symptom management - Pertinent HPI 63 year old female with metastatic breast cancer with metastasis to bone and liver. Patient has had three admissions in September prior to current admission related to adverse symptoms of chemotherapy. One week ago patient reports weaker , increase in confusion and ability to concentrate while working. Increase in pain which she was giving [place] and had resulting constipation followed by breakdown to oral mucosa, difficulty swallowing, and poor appetite. Respiratory compromise also evident as increase in shortness of breath and cough. Presented to emergency room for evaluation and assistance of management of symptoms. Identified to have neutropenia and pneumonia. Patient admitted to oncology and consult for Palliative Care and symptom management. - Pertinent PMH Breast cancer/High grade invasive ductal carcinoma left breast. Mets to C-spine/ T-spine, and liver. Chronic neuropathy. - Social History Smoking Status: Never smoker Smoking: no tobacco exposure Alcohol Use: none Drug Use History: none Living Situation: - Medications MAR Reviewed: Yes - Allergies Allergies/Adverse Reactions: Allergies Allergy/AdvReac Type Severity Reaction Status Date / Time levofloxacin [From Levaquin] Allergy NAUSEA/VOMI Verified 09/23/18 23:46 TING ciprofloxacin [From Cipro] AdvReac NAUSEA/VOMI Verified 09/23/18 23:46 TING [place] OINTMENT AdvReac Uncoded 09/23/18 23:46 - Subjective Continues with pain to oral mucosa and pharynx making it difficult to eat, swallow, and talk. Chronic pain, pain today primarily to left knee and rated at a 5. Nothing currently relieves her oral discomfort. Pain to her left leg is fluctuating and improves with pain medication. Fatigued, depressed. - Objective Vital Signs: Vital Signs - Most Recent Temp Pulse Resp BP Pulse Ox 98.5 F 116 H 16 110/66 92 L 10/06/18 13:35 10/06/18 13:35 10/06/18 13:35 10/06/18 13:35 10/06/18 13:35 Palliative Performance Scale: 40 - Physical Exam Constitutional: mild distress Deviation from normal: Distress is realted to mucositis, general fatigue and disease progression HEENT: PERRLA, EOMI Deviation from normal: Mildly labored with minimal exertion Gastrointestinal: positive bowel sounds Musculoskeletal: edema present Deviation from normal: Neuropathies to lower extremities. Deviation from normal: Depressed Deviation from normal: Pallor - Problem List (1) Palliative care encounter Code(s): Z51.5 - ENCOUNTER FOR PALLIATIVE CARE Current Visit: Yes Status: Acute Assessment: Cancer with metastases with resulting chemo that is impacting the quality of patients life. (2) Mucositis due to chemotherapy Code(s): K12.31 - ORAL MUCOSITIS (ULCERATIVE) DUE TO ANTINEOPLASTIC THERAPY Current Visit: Yes Status: Acute (3) Neuropathic pain Code(s): M79.2 - NEURALGIA AND NEURITIS, UNSPECIFIED Current Visit: Yes Status: Acute - Plan/Recommendations Plan: *Discussed addition of Hydrocortisone to "Magic Mouth" for patient. Confirmed and pharmacy to add to current compound. *Will discuss addition of lidocaine patch to patient knee to promoted comfort related to neuropathic pain as oral medications are limited secondary to patient not able to swallow oral medications at this time. *A [facility] to attempt to get audio books for patient *Aruna with Palliative Care / Roman to visit with patient as she feels hopeless and has lost her melia with cancer diagnosis and metastasis. *Palliative care will follow and continue to alter Plan to manage symptoms and promote optimal environment. [80] minutes spent on this encounter with >50% of the time in counseling and coordination of care. Thank you for this very appropriate consult.
[2018-10-06] MEDS: Ondansetron PF 4 MG/2 ML Vial IVP PRN (16:43)
[2018-10-06] MEDS: Bisacodyl 10 MG SUPP PR PRN (17:25)
[2018-10-06] MEDS ORDERED: diphenhydrAMINE 50 MG/ML VIAL IVP SCH (18:00)
--- NOTE | 2018-10-06 18:17 | PRG ---
DATE OF SERVICE: 10/06/2018 SUBJECTIVE: Ms. Toscano has been admitted for neutropenic pneumonia. She now has severe mucositis of her mouth. She is not able to speak secondary to pain. She is neutropenic as well as anemic. She is currently on cefepime. She states to me and shaking head that she does not wish to have any further chemotherapy done. Matter of fact, she states to me that she would like to have a hospice consult. I spoke with her oncologist, Dr. Mejia. He will be back to see her later today. She is currently getting 1 unit of blood. It is noted that her potassium is now 3.2. She does have other IV fluids with potassium running. OBJECTIVE: LUNGS: Bilateral breath sounds. HEART: Regular rate and rhythm. No murmurs, gallops, or rubs. IMPRESSION: 1. Metastatic breast cancer. 2. Neutropenia. 3. Anemia. 4. Hypokalemia. PLAN: 1. I discussed the findings with the patient. She wishes hospice consult. This will be done. 2. The nurses informed me she has not had a bowel movement. We will prescribe Dulcolax suppositories. 3. I written an order to start her on acyclovir, try to improve her mucositis. 4. I have spoken with her . He wishes to proceed with hospice consult as well. The patient does verbalize understanding of the meaning and result of what a hospice consult would be. Job ID: [id number]
[2018-10-06] MEDS ORDERED: Acetaminophen 500 MG TAB PO PRN (23:29)
[2018-10-07] MEDS: Acetaminophen 650 MG Suppository PR PRN ×2 (00:10→03:08)
[2018-10-07] MEDS: Morphine 2 MG/ML SYRINGE SLOW IVP PRN ×2 (03:00→21:17)
[2018-10-07] MEDS: D5 1/2 NS w/20 mEq KCL 1,000 ML IV SCH ×4 (03:53→20:01)
[2018-10-07] MEDS: Acyclovir Sodium 660 MG in Sodium Chloride 0.9% 100 ML IVPB SCH ×3 (05:37→23:07)
[2018-10-07 05:51] LABS: Hemoglobin 8.4 g/dL (12.0-16.0); Mean Corpuscular HGB CONC 33.9 g/dL (32.0-36.0); Mean Corpuscular Hemoglobin 33.1 pg (27.0-31.0); Mean Corpuscular Volume 97.9 fL (78.0-98.0); Mean Platelet Volume 11.4 fL (7.4-10.4); Platelet Count 16 thou/uL (130-400); RBC Distribution Width 16.7 % (11.5-14.5); Red Blood Cell (RBC) Count 2.55 mill/uL (4.20-5.40); White Blood Cell (WBC) Count 0.2 thou/uL (4.8-10.8)
[2018-10-07 06:05] LABS: ALT (SGPT) 42 U/L (8-55); AST (SGOT) 131 U/L (5-34); Albumin 2.2 g/dL (3.4-4.8); Alkaline Phosphatase 293 U/L (40-150); Anion Gap 9 mmol/L (10-20); BUN (Urea Nitrogen) 8 mg/dL (9.8-20.1); Bilirubin, Total 4.1 mg/dL (0.2-1.2); Calc. Creatinine Clearance 97 mL/min (70-130); Calcium 7.2 mg/dL (7.8-10.44); Carbon Dioxide 23 mmol/L (23-31); Chloride 108 mmol/L (98-107); Estimated GFR-MDRD 80; Glucose 174 mg/dL (80-115); Potassium 3.8 mmol/L (3.5-5.1); Protein, Total 4.2 g/dL (6.0-8.3); Sodium 136 mmol/L (136-145)
--- NOTE | 2018-10-07 08:01 | PRG ---
DATE OF SERVICE: 10/07/2018 SUBJECTIVE: Ms. Toscano is feeling little better. Throat hurts less. Her mouth hurts less. She is able to talk and though, vocalize a little bit better this morning. OBJECTIVE: VITAL SIGNS: Her T-max is 100.5, BP 105/62, pulse 127, and O2 saturations 94% on room air. LUNGS: Reveal bilateral breath sounds. No rales, rhonchi, or wheezes. HEART: Reveals no murmur. ABDOMEN: Soft. Bowel sounds are present and active. LABORATORY DATA: Her white blood count of 0.2, hemoglobin 8.4, hematocrit 24, and platelets 16,000. Chemistry; sodium 136, potassium 3.8, chloride 108, CO2 of 23, BUN 8, and creatinine 0.73. Blood cultures are no growth at this time. Review of medications shows that she is on cefepime and acyclovir at this time. IMPRESSION: 1. Neutropenia. 2. Possible pneumonia. 3. Mucositis. 4. Metastatic breast cancer. PLAN: The patient will be reviewed by Hospice today. The plan is to just improve her overall medical care and medical status. When she is stable enough to be discharged home, she will be enrolled in hospice. Job ID: [id number]
[2018-10-07] MEDS: Cefepime 1 GM in Sodium Chloride 0.9% 100 ML IVPB SCH ×2 (09:22→19:55)
[2018-10-07] MEDS: Docusate 100 MG CAP PO SCH ×2 (09:22→21:22)
[2018-10-07] MEDS: Bisacodyl 10 MG SUPP PR PRN ×2 (09:23→17:41)
[2018-10-07] MEDS: Vancomycin HCl 1.5 GM in Sodium Chloride 0.9% 250 ML 300 ML IVPB SCH ×2 (09:55→21:15)
[2018-10-07] MEDS: Aluminum & Magnesium Hydroxide 60 ML, diphenhydrAMINE 150 MG, Lidocaine 2% Viscous Solu... SSW PRN (20:46)
[2018-10-08] MEDS: D5 1/2 NS w/20 mEq KCL 1,000 ML IV SCH ×2 (03:34→20:03)
[2018-10-08] MEDS: Acyclovir Sodium 660 MG in Sodium Chloride 0.9% 100 ML IVPB SCH ×3 (05:07→23:05)
[2018-10-08 06:18] LABS: Hemoglobin 8.2 g/dL (12.0-16.0); Mean Corpuscular HGB CONC 33.7 g/dL (32.0-36.0); Mean Corpuscular Hemoglobin 32.9 pg (27.0-31.0); Mean Corpuscular Volume 97.9 fL (78.0-98.0); Mean Platelet Volume 11.9 fL (7.4-10.4); Platelet Count 13 thou/uL (130-400); RBC Distribution Width 16.9 % (11.5-14.5); White Blood Cell (WBC) Count 0.3 thou/uL (4.8-10.8)
[2018-10-08 06:30] LABS: Anion Gap 13 mmol/L (10-20); BUN (Urea Nitrogen) 13 mg/dL (9.8-20.1); Calc. Creatinine Clearance 51 mL/min (70-130); Calcium 7.2 mg/dL (7.8-10.44); Carbon Dioxide 20 mmol/L (23-31); Chloride 109 mmol/L (98-107); Estimated GFR-MDRD 38; Glucose 96 mg/dL (80-115); Potassium 3.7 mmol/L (3.5-5.1); Sodium 138 mmol/L (136-145)
[2018-10-08 06:45] LABS: Hypochromia SLIGHT = 6-15 cells (100X) (0-5/hpf); MDiff Complete? YES; Platelet Morphology Comment Appears Decreased
[2018-10-08] MEDS: Cefepime 1 GM in Sodium Chloride 0.9% 100 ML IVPB SCH ×2 (08:30→20:07)
[2018-10-08] MEDS: Vancomycin HCl 1.5 GM in Sodium Chloride 0.9% 250 ML 300 ML IVPB SCH ×2 (08:32→20:55)
[2018-10-08] MEDS: Docusate 100 MG CAP PO SCH ×2 (08:36→20:03)
[2018-10-08] MEDS: Morphine 2 MG/ML SYRINGE SLOW IVP PRN ×2 (08:49→20:17)
[2018-10-08] MEDS: Aluminum & Magnesium Hydroxide 60 ML, diphenhydrAMINE 150 MG, Lidocaine 2% Viscous Solu... SSW PRN ×2 (08:50→20:55)
[2018-10-08] MEDS ORDERED: diphenhydrAMINE 50 MG/ML VIAL ONE (10:33)
[2018-10-08] MEDS ORDERED: diphenhydrAMINE 50 MG/ML VIAL IVP PRN (11:02)
--- NOTE | 2018-10-08 13:14 | EKG ---
Test Reason : Blood Pressure : / mmHG Vent. Rate : 121 BPM Atrial Rate : 121 BPM P-R Int : 130 ms QRS Dur : 076 ms QT Int : 284 ms P-R-T Axes : 036 010 -07 degrees QTc Int : 403 ms Sinus tachycardia Low voltage QRS Nonspecific T wave abnormality Abnormal ECG When compared with ECG of 07-SEP-2018 21:22, Nonspecific T wave abnormality, worse in Inferior leads Nonspecific T wave abnormality now evident in Lateral leads Confirmed by RAMA NGO (2) on 10/08/2018 1:13:40 PM Referred By: MARGARET Confirmed By:RAMA NGO
[2018-10-08] MEDS: Ondansetron PF 4 MG/2 ML Vial IVP PRN (15:17)
--- NOTE | 2018-10-08 15:32 | PRG ---
DATE OF SERVICE: 10/08/2018 SUBJECTIVE: Ms. Toscano is feeling a tad bit better. She still complains of throat pain, difficulty speaking and talking, difficulty swallowing. OBJECTIVE: VITAL SIGNS: Temperature is 98.0, BP 110/63. LUNGS: Clear. HEART: Reveals no murmur. LABORATORY DATA: Her white blood count is 0.3, hemoglobin 8.2, hematocrit 24.5, and platelet count 13,000. Chemistry reveals sodium of 138, potassium 3.7, chloride 109, CO2 of 20, creatinine 1.38. IMPRESSION: 1. Neutropenia. 2. Metastatic breast cancer. 3. Mucositis. PLAN: The patient has been accepted by Hospice. We are waiting to covering her overall health picture before discharging her. She is aware that she has been accepted at hospice. She wants to go home when she feels better. We will continue current therapy at this time. Job ID: [id number]
[2018-10-08] MEDS ORDERED: D5 1/2 NS w/20 mEq KCL 1,000 ML IV SCH (16:01)
[2018-10-09] MEDS: Acyclovir Sodium 660 MG in Sodium Chloride 0.9% 100 ML IVPB SCH (06:01)
[2018-10-09 09:28] VITALS: BP 113/69; TEMP 98.5
--- NOTE | 2018-10-09 10:42 | PRG ---
DATE OF SERVICE: 10/09/2018 SUBJECTIVE: Ms. Toscano is resting in bed. She desires to go home. She will be going home to hospice care. She fully understands the implications of going home to hospice care. She wishes to do this. She does not wish to have any further chemotherapy. OBJECTIVE: VITAL SIGNS: Temperature 97.9, BP 106/62. LUNGS: Clear. HEART: Reveals a regular rate and rhythm. No murmurs, gallops, or rubs. IMPRESSION: 1. Metastatic breast cancer, now probably terminal. 2. Neutropenia. PLAN: Per the patient's request, she was sent home to hospice today. [facility] will be notified of her discharge. Job ID: [id number]
[2018-10-09] MEDS: Vancomycin HCl 1.5 GM in Sodium Chloride 0.9% 250 ML 300 ML IVPB SCH (10:44)
[2018-10-09] MEDS: Docusate 100 MG CAP PO SCH (10:45)
[2018-10-09] MEDS: Cefepime 1 GM in Sodium Chloride 0.9% 100 ML IVPB SCH (10:45)
[2018-10-09] MEDS: Aluminum & Magnesium Hydroxide 60 ML, diphenhydrAMINE 150 MG, Lidocaine 2% Viscous Solu... SSW PRN (12:43)
[2018-10-09] MEDS: Ondansetron PF 4 MG/2 ML Vial IVP PRN (12:43)
[2018-10-09] MEDS: Morphine 2 MG/ML SYRINGE SLOW IVP PRN (12:44)
== END 2018-10-09 13:49 | disposition hospice, home (50) | DRG 194 ==
LOC: ERS 12:56 → ONC 19:20
PROVIDERS: ADMIT Family Medicine; ATTEND Family Medicine
PROC: 30233R1 Transfusion of Nonautologous Platelets into Peripheral Vein, Percutaneous Approach (ICD-10-PCS; principal; 2018-10-05)
PROC: 30233N1 Transfusion of Nonautologous Red Blood Cells into Peripheral Vein, Percutaneous Approach (ICD-10-PCS; 2018-10-06)
DX: J18.9 Pneumonia, unspecified organism (principal); C78.7 Secondary malignant neoplasm of liver and intrahepatic bile duct; C79.51 Secondary malignant neoplasm of bone; Z51.5 Encounter for palliative care; C50.919 Malignant neoplasm of unspecified site of unspecified female breast; K59.00 Constipation, unspecified; G62.9 Polyneuropathy, unspecified; K12.30 Oral mucositis (ulcerative), unspecified; D70.9 Neutropenia, unspecified; D69.6 Thrombocytopenia, unspecified; E87.6 Hypokalemia; D64.9 Anemia, unspecified; T45.1X5A Adverse effect of antineoplastic and immunosuppressive drugs, initial encounter; Z88.1 Allergy status to other antibiotic agents
CPT/HCPCS: 36415; 36430; 71045; 80048; 80053; 80202; 81003; 81015; 82140; 82248; 83605; 83615; 84100; 84550; 85025; 85610; 85730; 86850; 86900; 86901; 87040; 93005; 93010; 96361; 96365; 96367; 96375; J0133; J0456; J0692; J0696; J1200; J1447; J1642; J2270; J2405; J3370; J3490; J7050; P9016; P9035; Q0163